=== PATIENT | male | born 1945 | race Caucasian/White ===

== ENCOUNTER 2017-12-18 06:55 | Outpatient (CLI) | payer MEDICARE ==
[2017-12-18] MEDS ORDERED: Regadenoson 0.4 MG/5 ML SYRINGE ONE (10:24)
--- NOTE | 2017-12-18 12:16 | NM ---
NUCLEAR MEDICINE CARDIAC STRESS TEST WITH EJECTION FRACTION: HISTORY: Coronary artery disease. COMPARISON: None. TECHNIQUE: Stress and rest was performed after the intravenous administration of 30.1 and 10.4 mCi technetium-99 m sestamibi intravenously, respectively. FINDINGS: There are fixed defects of the lateral wall, anterior wall, inferior wall, and septum. There is perii nfarct ischemia of the apex and inferior wall. There is global hypokinesia. The ejection fraction is 18%. IMPRESSION: 1. Extensive fixed defects throughout the anterior, lateral, inferior wall, and septum, as well as a pex, along with some periinfarct ischemia of the lateral wall and apex. 2. Abnormal low ejection fraction of 18% with global hypokinesia. POS: [facility]
--- NOTE | 2017-12-22 12:22 | STRESS ---
Acquisition Time: 2017-12-18 09:08:27 Total Exercise Time: 00:01:00 Test Indications: CAD Medications: Protocol: LEXISCAN Max HR: 086 BPM 58% of Pred: 148 BPM Max BP: 116/076 mmHG Max Work Load: 1.0 METS THE PATIENT WAS INJECTED WITH LEXISCAN. HE DID NOT DEVELOP CHEST PAIN. THERE WAS NO SIGNIFICANT ST DEPRESSION. AWAIT NUCLEAR IMAGES FOR DEFINITIVE DIAGNOSIS. Confirmed by DANDRE MCGOVERN ([id number]), editor publications VIKTOR KHAN ([id number]) on 12/22/2017 12:22:32 PM Referred By: MD Faisal REYES Confirmed By:DANDRE MCGOVERN
== END 2017-12-18 06:56 | disposition home or self-care (01) ==
LOC: NM 06:55
PROVIDERS: ATTEND Internal Medicine Cardiovascular Disease
DX: I25.10 Atherosclerotic heart disease of native coronary artery without angina pectoris (principal); I25.9 Chronic ischemic heart disease, unspecified
CPT/HCPCS: 78452; 93017; A9500; J2785

== ENCOUNTER 2019-06-20 19:11 | Inpatient (IN) | payer MEDICARE ==
[2019-06-20 19:44] LABS: #Eosinphils 0.1 thou/uL (0.0-0.7); #Lymphocytes 0.8 thou/uL (1.20-3.40); #Neutrophils 6.2 thou/uL (1.40-6.50); %Basophils 0.3 % (0.0-1.0); %Eosinophils 0.7 % (0.0-10.0); %Monocytes 12.2 % (0.0-10.0); %Neutrophils 76.7 % (42.0-75.0); Hemoglobin 13.2 g/dL (14.0-18.0); Mean Corpuscular HGB CONC 31.3 g/dL (32.0-36.0); Mean Corpuscular Hemoglobin 30.3 pg (27.0-31.0); Mean Corpuscular Volume 96.8 fL (78.0-98.0); Mean Platelet Volume 9.8 fL (7.4-10.4); Platelet Count 89 thou/uL (130-400); RBC Distribution Width 14.1 % (11.5-14.5); Red Blood Cell (RBC) Count 4.34 mill/uL (4.70-6.10); White Blood Cell (WBC) Count 8.1 thou/uL (4.8-10.8)
[2019-06-20 19:48] LABS: Bilirubin 1+ (Negative); Blood, Urine 2+ (Negative); Clarity Turbid (Clear); Glucose, Urine (Dipstick) Normal (Negative); Leukocyte Negative Leu/uL (Negative); Nitrite Negative (Negative); Protein, Urine (Dipstick) 100 mg/dL (Neg-Trace); Squamous Epithelial None Seen HPF (0-3)
[2019-06-20 19:49] LABS: Bacteria/HPF 1+ HPF (None Seen)
[2019-06-20 20:03] LABS: ALT (SGPT) 20 U/L (8-55); AST (SGOT) 23 U/L (5-34); Albumin 3.6 g/dL (3.4-4.8); Alkaline Phosphatase 67 U/L (40-110); Anion Gap 14 mmol/L (10-20); BUN (Urea Nitrogen) 33 mg/dL (8.4-25.7); Bilirubin, Total 3.7 mg/dL (0.2-1.2); Calc. Creatinine Clearance 0 mL/min (70-130); Carbon Dioxide 23 mmol/L (23-31); Chloride 102 mmol/L (98-107); Estimated GFR-MDRD 43; Globulin 2.8 g/dL (2.4-3.5); Glucose 104 mg/dL (83-110); Potassium 4.3 mmol/L (3.5-5.1); Protein, Total 6.4 g/dL (5.8-8.1); Sodium 135 mmol/L (136-145)
[2019-06-20] MEDS ORDERED: Fentanyl 100 MCG/2 ML VIAL ONE (21:56)
[2019-06-20 22:10] LABS: PTT 61.2 SEC (22.9-36.1); Prothrombin Time 31.1 sec (12.0-14.7)
[2019-06-20 23:54] VITALS: BMI 32.1
[2019-06-21] MEDS ORDERED: Ondansetron PF 4 MG/2 ML Vial IVP PRN ×2 (01:48→09:56)
[2019-06-21] MEDS ORDERED: Ondansetron ODT 4 MG TAB SL PRN (01:48)
[2019-06-21] MEDS ORDERED: Acetaminophen 325 MG TAB PO PRN (01:48)
[2019-06-21] MEDS ORDERED: Fentanyl 100 MCG/2 ML VIAL SLOW IVP PRN ×2 (01:49→02:05)
[2019-06-21] MEDS: Sodium Chloride 0.9% 1,000 ML IV SCH ×5 (01:56→22:00)
[2019-06-21 06:20] LABS: INR-International Normal Ratio 2.9; Prothrombin Time 30.2 sec (12.0-14.7)
[2019-06-21 06:34] LABS: ALT (SGPT) 17 U/L (8-55); AST (SGOT) 22 U/L (5-34); Albumin 3.6 g/dL (3.4-4.8); Alkaline Phosphatase 71 U/L (40-110); Anion Gap 13 mmol/L (10-20); BUN (Urea Nitrogen) 35 mg/dL (8.4-25.7); Bilirubin, Direct 1.5 mg/dL (0.1-0.3); Bilirubin, Total 3.7 mg/dL (0.2-1.2); Calc. Creatinine Clearance 86 mL/min (70-130); Calcium 8.8 mg/dL (7.8-10.44); Carbon Dioxide 23 mmol/L (23-31); Chloride 104 mmol/L (98-107); Estimated GFR-MDRD 56; Glucose 85 mg/dL (83-110); Magnesium 1.8 mg/dL (1.6-2.6); Potassium 4.3 mmol/L (3.5-5.1); Protein, Total 6.6 g/dL (5.8-8.1); Sodium 136 mmol/L (136-145)
[2019-06-21 06:39] LABS: #Eosinphils 0.1 thou/uL (0.0-0.7); #Lymphocytes 0.9 thou/uL (1.20-3.40); #Neutrophils 5.9 thou/uL (1.40-6.50); %Basophils 0.1 % (0.0-1.0); %Eosinophils 1.3 % (0.0-10.0); %Lymphocytes 11.6 % (21.0-51.0); %Monocytes 12.1 % (0.0-10.0); %Neutrophils 74.9 % (42.0-75.0); Hemoglobin 12.9 g/dL (14.0-18.0); Mean Corpuscular HGB CONC 30.6 g/dL (32.0-36.0); Mean Corpuscular Hemoglobin 29.7 pg (27.0-31.0); Mean Corpuscular Volume 96.8 fL (78.0-98.0); Mean Platelet Volume 9.8 fL (7.4-10.4); Platelet Count 93 thou/uL (130-400); RBC Distribution Width 14.4 % (11.5-14.5); Red Blood Cell (RBC) Count 4.36 mill/uL (4.70-6.10); White Blood Cell (WBC) Count 7.9 thou/uL (4.8-10.8)
[2019-06-21] MEDS ORDERED: Prevnar 13-Val Conj/PF 0.5 ML SYRINGE IM ONE (09:00)
[2019-06-21] MEDS ORDERED: Dextrose 5% in Water 1,000 ML IV PRN (09:56)
[2019-06-21] MEDS ORDERED: Ondansetron ODT 4 MG TAB PO PRN (09:56)
[2019-06-21] MEDS ORDERED: HumaLOG 300 UNITS/3 ML VIAL SC PRN ×2 (09:56)
[2019-06-21] MEDS ORDERED: Dextrose 50% Abboject 50 ML SYRINGE SLOW IVP PRN (09:56)
[2019-06-21 10:55] LABS: Digoxin 0.75 ng/mL (0.8-2.0)
[2019-06-21] MEDS: cefTRIAXone\\ROCEPHIN 2 GM in Sodium Chloride 0.9% 100 ML IVPB SCH (11:20)
[2019-06-21] MEDS: Acetaminophen 500 MG TAB PO PRN ×2 (11:28→20:11)
--- NOTE | 2019-06-21 11:51 | HP ---
PRIMARY CARE PROVIDER: Dr. James Hooker CHIEF COMPLAINT: Abdominal pain. HISTORY OF PRESENT ILLNESS: This is a 73-year-old male, who presents to [facility] Emergency Department in transfer from [place] Emergency room, where the patient initially presented with left flank and left upper quadrant abdominal pain. The patient states the symptoms began approximately 5 days prior to this evaluation spontaneously. The patient denied trauma, injury, travel history, diarrhea, or dysuria. The patient denied any associated fever, chills, or vomiting. The patient states the pain has increased in severity in the left upper quadrant, bandlike, radiating to his left lower quadrant, at times worse with deep inspiration. The patient also admits to increasing abdominal girth and states he has had to increase his belt size to notches over the last 5 days. The patient denied any discoloration to the abdomen or bruising and denies any fall. The patient's last bowel movement was 72 hours prior to this evaluation. The patient took a prescription hydrocodone for management of his pain at home. The patient denied any other change to his chronic medication regimen and states he was placed on oral antibiotics after visiting the emergency room in [place], but only took 1 dose, at which point the pain increased and he presented back to the emergency room for evaluation. CT imaging in the emergency room showed no acute process. However, the patient was noted with elevated total bilirubin and hypotension. The patient was referred to [facility] Emergency Room for further evaluation. The patient received IV fluids with normal saline in addition to fentanyl 50 mcg IV push. PAST MEDICAL HISTORY: 1. Chronic anticoagulation with Coumadin. 2. Artificial aortic valve replacement, on chronic anticoagulation. 3. Cardiomyopathy, status post AICD placement. 4. Diabetes mellitus type 2, on oral hypoglycemics. 5. History of myocardial infarction. 6. Benign prostatic hyperplasia. 7. History of atrial fibrillation. 8. Hypertension. 9. Obstructive sleep apnea, on home CPAP. PAST SURGICAL HISTORY: 1. Status post aortic valve replacement, on chronic anticoagulation. 2. Status post AICD pacemaker placement. 3. Status post right leg surgery. 4. Status post cholecystectomy. CURRENT MEDICATIONS: 1. Amiodarone 200 mg p.o. daily. 2. Coreg 6.25 mg p.o. b.i.d. 3. Digoxin 125 mcg p.o. daily. 4. Levothyroxine 137 mcg p.o. daily. 5. Metformin 1000 mg p.o. b.i.d. 6. Accupril 40 mg p.o. daily. 7. Aldactone 25 mg p.o. daily. 8. Coumadin 3.75 mg at bedtime. ALLERGIES: NO KNOWN DRUG ALLERGIES. FAMILY HISTORY: No inheritable diseases per the patient report. SOCIAL HISTORY: , with 2 daughters. No alcohol, tobacco, or illicit drug use. Resides in the [place], [place]. Retired. REVIEW OF SYSTEMS: CONSTITUTIONAL: Negative for weight loss or gain, ability to conduct usual activities. SKIN: Negative for rash, itching. EYES: Negative for double vision, pain. ENT/MOUTH: Negative for nose bleeding, neck stiffness, pain, tenderness. CARDIOVASCULAR: Negative for palpitations, dyspnea on exertion, orthopnea. RESPIRATORY: Negative for shortness of breath, wheezing, cough, hemoptysis, fever or night sweats. GASTROINTESTINAL: Negative for poor appetite, abdominal pain, heartburn, nausea , vomiting, constipation, or diarrhea. GENITOURINARY: Negative for urgency, frequency, dysuria, nocturia. MUSCULOSKELETAL: Negative for pain, swelling. NEUROLOGIC/PSYCHIATRIC: Negative for anxiety, depression. ALLERGY/IMMUNOLOGIC: Negative for skin rash, bleeding tendency. Otherwise, negative except as stated per HPI. PHYSICAL EXAMINATION: VITAL SIGNS: Blood pressure 93/64, pulse 77, respiratory rate is 20, temperature 98.2 degrees Fahrenheit, and O2 saturation 94% on room air. GENERAL APPEARANCE: This is a 73-year-old male, alert and oriented x3 , pleasant, responsive, in no acute distress. HEENT: Pupils are equal, round, and reactive to light and accommodation. Extraocular muscles are intact. No scleral icterus. No conjunctival injection. Nares patent. OP is clear. Teeth in fair repair. NECK: Supple. No cervical adenopathy. No thyromegaly. No carotid bruits. No JVD appreciated. Cervical spine with full active and passive range of motion. No meningeal signs noted. CHEST: Lungs are clear to auscultation bilaterally. CARDIOVASCULAR: S1 and S2 with irregular rate. Right upper sternal border with mechanical click consistent with aortic valve replacement. ABDOMEN: Obese, distended with tenderness to palpation in the left upper and left lower quadrant. No CVA tenderness elicited. No palpable mass. No rebound or guarding. Bowel sounds are positive in all 4 quadrants. Landmarks are difficult to palpate due to the patient's body habitus. EXTREMITIES: Warm and dry with fair turgor. Mild edema to the lower extremities bilaterally. Pulses diminished, but palpable at the dorsalis pedis, posterior tibial, and popliteal arteries bilaterally. Capillary refill less than 2 seconds. Hyperpigmentation changes consistent with venous stasis of the lower extremities bilaterally. NEUROLOGIC: Cranial nerves 2 through 12 are grossly intact. No focal or lateralizing signs appreciated. PERTINENT LABORATORY AND X-RAY FINDINGS: Sodium 135, potassium 4.3, chloride 102, CO2 of 23, BUN 33, creatinine 1.58, estimated GFR 43, glucose 104, lactic acid level 1.0, calcium 9.0, magnesium 1.8, total bilirubin 3.7, AST 23, ALT of 20, alkaline phosphatase 67, albumin 3.6, lipase 50. CBC showed a white blood cell count of 8.1, hemoglobin 13.2, hematocrit 42.1, platelet count 89,000 with 77% neutrophils. PT 30.2, INR 2.9. Urinalysis showed a pH of 5.5, specific gravity 1.048, positive protein, blood and bilirubin with 11 to 20 rbc's per high-power field, 7 to 10 wbc's per high-power field. CT of the abdomen and pelvis dated 06/19/2019, showed small amount of ascites. Acute abdominal process not identified. CT angiogram of the chest dated 06/19/2019, showed no evidence for pulmonary embolus. 3 views of the left rib cage and chest wall dated 06/19/2019, showed no acute process. PA and lateral chest x-ray dated 06/19/2019, showed cardiomegaly without acute process. EKG dated 06/20/2019, by my interpretation shows a ventricular paced rhythm with heart rates in the 70s. ASSESSMENT AND PLAN: 1. Abdominal pain. Predominance of left upper quadrant and left flank. We will obtain abdominal ultrasound to rule out hematoma given the patient's chronic Coumadin therapy. Suspect element of urinary tract infection as underlying etiology. Continue pain control with fentanyl 25 mcg IV q.4 hours p.r.n. Serial abdominal exams. 2. Urinary tract infection. Initiate Rocephin 2 g IV q.24 hours awaiting final urine culture results. 3. Hypotension. Suspect element of dehydration in conjunction with antihypertensive regimen. Hold all antihypertensive medications. Continue intravenous normal saline at 125 mL/h. 4. Acute kidney injury on chronic kidney disease stage 3. Continue IV fluids as outlined previously. Avoid nephrotoxic agents and limit contrast exposure. Repeat creatinine in the a.m. 5. Hyperbilirubinemia. Exact etiology unclear. Questionable iatrogenic effect. Check abdominal ultrasound as stated previously. Repeat total bilirubin in the a.m. 6. Ischemic cardiomyopathy. Stable currently. No evidence of clinical decompensation. Check BNP. Resume amiodarone and digoxin. 7. Hypothyroidism. Check TSH level. Continue levothyroxine 137 mcg daily. 8. Prophylaxis. SCDs while in bed. Pepcid 20 mg p.o. b.i.d. 9. Code status is full. Surrogate medical decision maker is the patient's daughter. Job ID: [id number] MTDD
--- NOTE | 2019-06-21 14:31 | ULT ---
EXAM: ABDOMINAL ULTRASOUND COMPLETE: 06/21/19 HISTORY: Left flank pain, abdominal distention. COMPARISON: 06/19/19. FINDINGS: Status post cholecystectomy. Minimal hepatosplenomegaly with the liver measuring approximately 20 cm and the spleen measuring approximately 14 cm in length. Common bile duct 0.6 cm. No focal liver roberto carlos s. The visualized pancreas, IVC, and aorta are unremarkable. There is no renal hydronephrosis. No dawn dence for abscess. No focal liver mass. IMPRESSION: Evidence for ascites. Mild hepatosplenomegaly. Status post cholecystectomy. Common bile duct 0.6 cm. Left renal cyst, 2.7 x 3.1 cm. No evidence for other acute process. POS: [facility]
[2019-06-21] MEDS: Fentanyl 100 MCG/2 ML VIAL SLOW IVP PRN ×2 (15:37→19:14)
[2019-06-21] MEDS: Famotidine 20 MG TAB PO SCH (20:11)
[2019-06-21] MEDS: Warfarin Sodium 3.75 MG HALF.TAB PO SCH (20:11)
[2019-06-21] MEDS ORDERED: Warfarin Sodium 7.5 MG TAB PO SCH (21:00)
[2019-06-22] MEDS: Fentanyl 100 MCG/2 ML VIAL SLOW IVP PRN ×2 (00:18→06:26)
[2019-06-22] MEDS: Levothyroxine Sodium 25 MCG TAB PO SCH (05:22)
[2019-06-22] MEDS: Levothyroxine Sodium 112 MCG TAB PO SCH (05:23)
[2019-06-22] MEDS: Sodium Chloride 0.9% 1,000 ML IV SCH (05:24)
[2019-06-22 06:05] LABS: Prothrombin Time 41.1 sec (12.0-14.7)
[2019-06-22 06:12] LABS: Mean Corpuscular HGB CONC 30.7 g/dL (32.0-36.0); Mean Corpuscular Hemoglobin 29.9 pg (27.0-31.0); Mean Corpuscular Volume 97.5 fL (78.0-98.0); Mean Platelet Volume 9.4 fL (7.4-10.4); Platelet Count 106 thou/uL (130-400); RBC Distribution Width 14.2 % (11.5-14.5); Red Blood Cell (RBC) Count 4.34 mill/uL (4.70-6.10)
[2019-06-22 06:18] LABS: INR-International Normal Ratio 4.3
[2019-06-22 06:21] LABS: ALT (SGPT) 26 U/L (8-55); AST (SGOT) 42 U/L (5-34); Albumin 3.4 g/dL (3.4-4.8); Alkaline Phosphatase 66 U/L (40-110); Anion Gap 16 mmol/L (10-20); BUN (Urea Nitrogen) 31 mg/dL (8.4-25.7); Bilirubin, Total 2.9 mg/dL (0.2-1.2); Calc. Creatinine Clearance 119 mL/min (70-130); Calcium 8.5 mg/dL (7.8-10.44); Carbon Dioxide 18 mmol/L (23-31); Chloride 105 mmol/L (98-107); Estimated GFR-MDRD 82; Glucose 101 mg/dL (83-110); Protein, Total 6.4 g/dL (5.8-8.1); Sodium 134 mmol/L (136-145)
[2019-06-22] MEDS: Acetaminophen 500 MG TAB PO PRN (06:26)
[2019-06-22 06:48] LABS: Band 1 % (5-11); Elliptocytes SLIGHT = 2-5 cells (100X) (0-1/hpf); Eosinophils 1 % (0-10); Lymphocytes 14 % (21-51); MDiff Complete? YES; Monocytes 17 % (0-10); Neutrophil 67 % (42-75); Platelet Morphology Comment Appears Decreased
[2019-06-22 07:08] LABS: Prothrombin Time 40.5 sec (12.0-14.7)
[2019-06-22 07:28] LABS: INR-International Normal Ratio 4.3
[2019-06-22] MEDS: Amiodarone 200 MG TAB PO SCH (08:23)
[2019-06-22] MEDS: Famotidine 20 MG TAB PO SCH ×2 (08:23→20:26)
[2019-06-22] MEDS: Digoxin 0.125 MG TAB PO SCH (08:24)
[2019-06-22] MEDS ORDERED: Non-Formulary Item 1 EACH (Levothyroxine Sodium [Levothyroxine Sodium] 137 MCG) PO SCH (09:00)
[2019-06-22] MEDS ORDERED: Digoxin 0.25 MG TAB PO SCH (09:00)
[2019-06-22] MEDS ORDERED: Sodium Chloride 0.9% 1,000 ML IV SCH (10:09)
--- NOTE | 2019-06-22 10:25 | PDOC.HOSPP ---
- Subjective Encounter Date: 06/22/19 Encounter Time: 10:15 Subjective: f/u for abd pain and distention. Still with pain in the MICHAEL/LLQ. No BM in 5 days. No N/V or diarrhea. Minimal urine output per pt. - Objective Vital Signs & Weight: Vital Signs (12 hours) Temp Pulse Resp BP Pulse Ox 06/22/19 08:24 69 06/22/19 08:00 99 06/22/19 07:47 97.8 F 69 16 108/70 99 06/22/19 03:40 97.5 F L 78 18 128/86 96 Weight Weight 257 lb I&O: 06/21/19 06/22/19 06/23/19 06:59 06:59 06:59 Intake Total 915 1650 Output Total 600 Balance 915 1050 Result Diagrams: 06/22/19 05:42 06/22/19 05:42 Additional Labs: Accuchecks 06/22/19 06/21/19 06/21/19 05:26 20:35 16:35 POC Glucose 89 129 H 123 H 06/21/19 11:44 POC Glucose 83 Microbiology 05/09/16 23:14 Urine sarkar catheter Urine Culture - Final NO GROWTH AT 36 HOURS 05/09/16 18:25 Stool Stool Lactoferrin - Final 05/09/16 18:25 Stool Shiga Toxin Test - Final 05/09/16 18:25 Stool Rapid Parasite Screen - Final 05/09/16 18:25 Stool Campylobacter Antigen Assay - Final 05/09/16 18:25 Stool C. difficile GDH Antigen & Toxins - Final 05/09/16 11:33 Urine Straight Catheter Urine Culture - Final Escherichia coli 05/09/16 11:30 Venous blood - Left Arm Blood Culture - Final Coagulase Neg Staphylococcus 06/20/19 19:28 Urine voided Urine Culture - Preliminary NO GROWTH AT 24 HOURS 05/09/16 11:50 Venous blood - Left Hand Blood Culture - Preliminary NO GROWTH AT 48 HOURS Laboratory Tests 05/09/16 05/09/16 05/10/16 15:25 15:26 05:06 Hgb Plt Count Neutrophils % Neutrophils % (Manual) INR 2.9 BUN Creatinine 1.36 H 1.50 H Total Bilirubin AST B-Natriuretic Peptide TSH 3rd Generation Digoxin 05/10/16 05/10/16 05/11/16 05:06 05:06 05:25 Hgb 12.2 L Plt Count Neutrophils % Neutrophils % (Manual) INR 4.0 4.2 H* BUN Creatinine Total Bilirubin AST B-Natriuretic Peptide TSH 3rd Generation Digoxin 05/11/16 05/11/16 05/12/16 05:25 12:05 04:44 Hgb 12.0 L Plt Count Neutrophils % Neutrophils % (Manual) INR 4.0 BUN Creatinine 1.01 Total Bilirubin AST B-Natriuretic Peptide TSH 3rd Generation Digoxin 06/20/19 06/20/19 06/21/19 19:28 19:28 05:46 Hgb Plt Count 89 L Neutrophils % 76.7 H Neutrophils % (Manual) INR BUN 33 H 35 H Creatinine 1.58 H 1.26 Total Bilirubin 3.7 H 3.7 H AST 23 22 B-Natriuretic Peptide TSH 3rd Generation Digoxin 06/21/19 06/21/19 06/21/19 05:46 05:46 05:46 Hgb Plt Count 93 L Neutrophils % 74.9 Neutrophils % (Manual) INR BUN Creatinine Total Bilirubin AST B-Natriuretic Peptide TSH 3rd Generation 0.3060 L Digoxin 0.75 L 06/21/19 06/22/19 10:24 05:42 Hgb Plt Count Neutrophils % Neutrophils % (Manual) 67 INR BUN Creatinine Total Bilirubin AST B-Natriuretic Peptide 644.0 H TSH 3rd Generation Digoxin Radiology Reviewed by me: Yes (ABD sono - + ascites, no acute process noted) Hospitalist ROS - Medication Medications: Active Medications Generic Name Dose Route Start Last Admin Trade Name Freq PRN Reason Stop Dose Admin Acetaminophen 1,000 mg 06/21/19 09:56 06/22/19 06:26 Tylenol PO 1,000 mg Q6H PRN Administration Mild Pain (1-3) Amiodarone HCl 200 mg 06/22/19 09:00 06/22/19 08:23 Cordarone PO 200 mg DAILY NOHEMY Administration Digoxin 0.125 mg 06/22/19 09:00 06/22/19 08:24 Lanoxin PO 0.125 mg QAM NOHEMY Administration Famotidine 20 mg 06/21/19 21:00 06/22/19 08:23 Pepcid PO Not Given BID NOHEMY Fentanyl 25 mcg 06/21/19 10:00 06/22/19 06:26 Sublimaze SLOW IVP 25 mcg Q4H PRN Administration Moderate to Severe Pain (6-10) Ceftriaxone Sodium 2 gm/ 100 mls @ 200 mls/hr 06/21/19 11:00 06/21/19 11:20 Sodium Chloride IVPB 100 mls Q24HR NOHEMY Administration Levothyroxine Sodium 112 mcg 06/22/19 06:00 06/22/19 05:23 Synthroid PO 112 mcg 0600 NOHEMY Administration Levothyroxine Sodium 25 mcg 06/22/19 06:00 06/22/19 05:22 Synthroid PO 25 mcg 0600 NOHEMY Administration Sodium Chloride 10 ml 06/21/19 21:00 06/22/19 08:27 Flush - Normal Saline IVF Not Given Q12HR NOHEMY Warfarin Sodium 3.75 mg 06/21/19 21:00 06/21/19 20:11 Coumadin PO 3.75 mg HS NOHEMY Administration - Exam General Appearance: awake alert General - other findings: responsive in mild distress Eye: PERRL, anicteric sclera ENT: normocephalic atraumatic, no oropharyngeal lesions Neck: supple, symmetric, no JVD, no thyromegaly Heart: RRR, no gallops, no rubs, normal peripheral pulses Heart - other findings: S1, S2 Respiratory: CTAB Respiratory - other findings: diminished in bases Gastrointestinal: normal bowel sounds Gastrointestinal - other findings: obese, TTP in MICHAEL/LLQ, no palpable mass, mild ascites Extremities: no cyanosis, 1+ LE edema, 2+ LE edema Skin: normal turgor Neurological: cranial nerve grossly intact, no new deficit Musculoskeletal: normal tone, normal strength Psychiatric: A&O x 3, flat affect Hosp A/P (1) Abdominal pain Code(s): R10.9 - UNSPECIFIED ABDOMINAL PAIN Status: Acute Qualifiers: Abdominal location: left upper quadrant Qualified Code(s): R10.12 - Left upper quadrant pain Plan: Unclear etiology, ? constipation related, start Dulcolax supp/Senokot S, Saline lock IVF's, consult GI service, check Bladder scan for retention (2) UTI (urinary tract infection) Status: Acute Qualifiers: Hematuria presence: with hematuria Plan: Suspected with negative Ucx to date, continue Rocephin 2gm IV daily (3) Acute kidney injury superimposed on CKD Code(s): N17.9 - ACUTE KIDNEY FAILURE, UNSPECIFIED; N18.9 - CHRONIC KIDNEY DISEASE, UNSPECIFIED Status: Acute Plan: Improved, saline lock IVF's, avoid nephrotoxic meds and limit contrast (4) Supratherapeutic INR Code(s): R79.1 - ABNORMAL COAGULATION PROFILE Status: Acute Plan: Hold Coumadin, Goal INR 2-3, repeat PT/INR in am (5) Cardiomyopathy Code(s): I42.9 - CARDIOMYOPATHY, UNSPECIFIED Status: Chronic Plan: Continue home Digoxin/Amiodarone/Coreg, Lasix 20mg IV x 1 toda (6) Hypothyroid Code(s): E03.9 - HYPOTHYROIDISM, UNSPECIFIED Status: Chronic (7) Hyperbilirubinemia Code(s): E80.6 - OTHER DISORDERS OF BILIRUBIN METABOLISM Status: Acute Plan: Suspect hepatic congestion given ascites on abd sono, Lasix 20mg IV x 1, resume Aldactone - Plan continue antibiotics, 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
[2019-06-22] MEDS ORDERED: Furosemide 20 MG/2 ML VIAL SLOW IVP SCH (10:30)
[2019-06-22] MEDS ORDERED: Bisacodyl 10 MG SUPP PR PRN (10:30)
[2019-06-22] MEDS ORDERED: Senokot S 8.6-50 MG TAB PO SCH ×2 (10:30→21:00)
[2019-06-22] MEDS: cefTRIAXone\\ROCEPHIN 2 GM in Sodium Chloride 0.9% 100 ML IVPB SCH (10:32)
--- NOTE | 2019-06-23 02:14 | CON ---
DATE OF CONSULTATION: 06/22/2019 REASON FOR CONSULTATION: Abdominal pain, hyperbilirubinemia. CONSULTING PROVIDER: Dr. Robert Grossman. HISTORY OF PRESENT ILLNESS: The patient is a 73-year-old male with past medical history of obstructive sleep apnea, hypertension, atrial fibrillation, aortic valve repair, coronary artery disease/myocardial infarction, cardiomyopathy status post AICD, diabetes, and benign prostatic hyperplasia, presenting with complaints of left-sided abdominal pain and abnormal liver function tests. The patient states that approximately 5 to 6 days ago, he began having increased left lower quadrant abdominal pain that he characterized as a sharp/stabbing type sensation that would radiate to the left upper quadrant, was intermittent, lasting for 1 to 2 hours in duration, and reaching a severity of 8/10. The pain was worse with pressure to the left side of his abdomen, lying down, twisting movements, and not having a bowel movement. The pain was better with lying on either of his sides, pain medications, and having a bowel movement. This abdominal pain was also associated with increased abdominal bloating, anxiety, subjective chills, and possible weight gain per patient. However, he denied any nausea, vomiting, fevers, hematemesis, melena, hematochezia, dysphagia, or odynophagia. On review of the patient's chart, he initially went to the [facility] room; at which point, he was diagnosed with what sounds like diverticulitis and given antibiotics in addition to hydrocodone for pain relief; however, he only took one dose of the antibiotics and presented back to the emergency room with no significant relief in his pain other than what was achieved with hydrocodone. CT scan obtained within the [facility] did not show any acute intraabdominal process, but he was noted to have a hyperbilirubinemia in addition to mild hypotension, so he was subsequently transferred to [facility] for further evaluation. While in the ER, the patient did receive IV fluids in addition to fentanyl 50 mcg IV push. REVIEW OF SYSTEMS: A 10-category review of systems was obtained with all responses negative except for the pertinent positives as listed in HPI. PAST MEDICAL HISTORY: As per HPI. PAST SURGICAL HISTORY: Cholecystectomy, right leg surgery, AICD/pacemaker placement, and aortic valve replacement. FAMILY HISTORY: Denies any GI malignancies. SOCIAL HISTORY: Denies any tobacco, alcohol, or illicit drug use. OUTPATIENT MEDICATIONS: Reviewed. ALLERGIES: NO KNOWN DRUG ALLERGIES. PHYSICAL EXAMINATION: VITAL SIGNS: Temperature 97.6, pulse 74, blood pressure 118/82, respiratory rate 18, saturating 98% on 2 L nasal cannula. GENERAL: The patient was lying in bed, in no acute distress. Alert and oriented x4. HEENT: Normocephalic and atraumatic. NECK: Supple. No JVD or scleral icterus noted. CARDIOVASCULAR: 4/6 systolic murmur best heard at the left upper sternal border in addition to a loud S2 was auscultated. RESPIRATORY: Clear to auscultation bilaterally with no discernible wheezes or rales. ABDOMEN: Normoactive bowel sounds. Soft. Mild abdominal distention. Mild tenderness to palpation in all abdominal quadrants. EXTREMITIES: No cyanosis or clubbing, but 2+ bilateral lower extremity edema was noted to the bilateral knees. LABORATORY DATA: CBC with a white blood cell count of 8, hemoglobin 13, hematocrit 42.3, platelets 106. INR 4.3. Chemistry with a sodium of 134, potassium 5, chloride 105, CO2 of 18, BUN 31, creatinine 0.91, glucose 101, AST 42, ALT 26, alkaline phosphatase 66, total bilirubin 2.9, direct bilirubin 1.5. BNP 644. IMAGING DATA: Abdominal ultrasound was obtained on June 21, 2019, which showed surgical change consistent with cholecystectomy. Minimal hepatosplenomegaly with the liver measuring approximately 20 cm was seen. However, the common bile duct measured 6 mm in diameter. There was no evidence of renal hydronephrosis. No evidence of abscess or focal liver mass. There was, however, evidence for mild ascites. On review of the patient's chart, CT of the abdomen and pelvis was obtained on June 19, 2019, which showed a small amount of ascites, but no other intraabdominal abnormalities. Colonoscopy was performed on August 05, 2016, which showed the presence of a descending colon tubular adenoma (unknown size as the colonoscopy report is not available for review). ASSESSMENT AND PLAN: The patient is a 73-year-old male with past medical history of obstructive sleep apnea, hypertension, atrial fibrillation, aortic valve repair, coronary artery disease/myocardial infarction, cardiomyopathy status post automatic implantable cardioverter-defibrillator/pacemaker, diabetes, and benign prostatic hyperplasia, presenting with left-sided abdominal pain and hyperbilirubinemia. 1. Left-sided abdominal pain. a. The patient had sudden onset of increased left-sided abdominal pain that has been present for the last 5 to 6 days and characterized as a sharp/stabbing type sensation originating in the left lower quadrant but radiating to the left upper quadrant. Prior to the onset of this pain, the patient was having approximately 1 solid bowel movement every 2 to 3 days that would require intermittent straining in order to facilitate defecation. With administration of narcotic medications including hydrocodone over the last 5 to 6 days, it actually worsened his abdominal pain prompting his readmission to the [facility]. However, over the course of this hospitalization, the patient was given a glycerin suppository and had a "voluminous" bowel movement today with significant reduction in his abdominal pain to the point where he had minimal abdominal pain on physical examination today. At this time, the origin of his abdominal pain seems to be more related to chronic constipation or rather worsening of his chronic constipation to possibly include a stool impaction or stool plug preventing the passage of stool and resulting in increased intracolonic pressures. Given the colonoscopy performed in 2017 with removal of a tubular adenoma, the likelihood of colonic malignancy is low. Differential could include diverticulitis (less likely) stercoral colitis, [id number] constipation, narcotic bowel syndrome, ischemic colitis (less likely) and/or GI neoplasm (less likely). b. Recommendations are. I. Would continue patient on a bowel regimen to include MiraLAX twice daily. II. Could consider bisacodyl as needed and/or enemas to facilitate defecation. III. Would continue to monitor patient for continued abdominal pain and/or GI bleeding. IV. If the patient continues to have increasing left-sided abdominal pain despite a bowel regimen and more frequent bowel movements, would consider colonoscopic evaluation at that time. 2. Hyperbilirubinemia. a. The patient is also presenting with an increased total bilirubin of 2.9, but a direct bilirubin of 1.5, making the diagnosis of a hepatic origin less likely (liver etiology for his hyperbilirubinemia would have a much higher direct bilirubin). The patient is also presenting with concurrent diagnosis of cardiomyopathy in addition to an elevated BNP and significant lower extremity edema, which could be indicative of worsening of his cardiomyopathy to progress toward congestive heart failure. If that is the case, he could also present as congestive hepatopathy, which could contribute to an elevated bilirubin. Differential could also include medication-induced hyperbilirubinemia, intravascular hemolysis (less likely), Gilbert syndrome (slightly less likely), congestive hepatopathy, and/or underlying liver disease. b. Recommendations are. I. Would continue to trend his LFTs during the course of this hospitalization to evaluate for resolution. II. We will consider obtaining a haptoglobin for possible intravascular hemolysis, although given his stable hemoglobin and hematocrit, this is much less likely. III. Would place the patient on a diuretic regimen for management of his congestive heart failure contributing to probable congestive hepatopathy. IV. If the patient has enough ascites that could potentially undergo paracentesis, I would recommend a paracentesis for further evaluation of the fluid including fluid albumin and protein, which could help differential between a liver versus renal versus cardiac origin. We will continue to monitor. Please call with any questions. Job ID: [id number]
[2019-06-23] MEDS: Levothyroxine Sodium 25 MCG TAB PO SCH (06:05)
[2019-06-23] MEDS: Levothyroxine Sodium 112 MCG TAB PO SCH (06:05)
[2019-06-23 06:28] LABS: Prothrombin Time 44.5 sec (12.0-14.7)
[2019-06-23 06:42] LABS: ALT (SGPT) 72 U/L (8-55); AST (SGOT) 107 U/L (5-34); Albumin 3.3 g/dL (3.4-4.8); Alkaline Phosphatase 68 U/L (40-110); Anion Gap 15 mmol/L (10-20); BUN (Urea Nitrogen) 23 mg/dL (8.4-25.7); Bilirubin, Total 2.4 mg/dL (0.2-1.2); Calc. Creatinine Clearance 121 mL/min (70-130); Calcium 8.7 mg/dL (7.8-10.44); Carbon Dioxide 19 mmol/L (23-31); Chloride 104 mmol/L (98-107); Estimated GFR-MDRD 83; Globulin 2.8 g/dL (2.4-3.5); Glucose 84 mg/dL (83-110); Potassium 4.3 mmol/L (3.5-5.1); Protein, Total 6.1 g/dL (5.8-8.1); Sodium 134 mmol/L (136-145)
[2019-06-23 06:45] LABS: INR-International Normal Ratio 4.8
[2019-06-23] MEDS: Digoxin 0.125 MG TAB PO SCH (07:41)
[2019-06-23] MEDS: Famotidine 20 MG TAB PO SCH ×2 (07:41→20:30)
[2019-06-23] MEDS: Amiodarone 200 MG TAB PO SCH (07:41)
[2019-06-23] MEDS: Polyethylene Glycol 3350 17 GM Packet PO SCH ×2 (07:41→20:30)
[2019-06-23] MEDS: cefTRIAXone\\ROCEPHIN 2 GM in Sodium Chloride 0.9% 100 ML IVPB SCH (10:29)
[2019-06-23] MEDS ORDERED: Furosemide 20 MG/2 ML VIAL SLOW IVP SCH (11:00)
--- NOTE | 2019-06-23 11:04 | PDOC.HOSPP ---
- Subjective Encounter Date: 06/23/19 Encounter Time: 11:00 Subjective: f/u for abd pain/constipation with BM's x 2 after receiving Dulcolax/Senokot-S. Still with abd fullness and some swelling of the legs/feet. - Objective Vital Signs & Weight: Vital Signs (12 hours) Temp Pulse Resp BP Pulse Ox 06/23/19 08:00 97 06/23/19 07:41 78 06/23/19 06:50 98.1 F 78 19 119/69 97 Weight Weight 257 lb I&O: 06/22/19 06/23/19 06/24/19 06:59 06:59 06:59 Intake Total 1650 1800 360 Output Total 600 701 Balance 1050 1099 360 Result Diagrams: 06/22/19 05:42 06/23/19 06:10 Additional Labs: Accuchecks 06/23/19 06/22/19 06/22/19 03:43 19:25 15:43 POC Glucose 90 163 H 111 H 06/22/19 11:48 POC Glucose 97 Microbiology 05/09/16 23:14 Urine sarkar catheter Urine Culture - Final NO GROWTH AT 36 HOURS 05/09/16 18:25 Stool Stool Lactoferrin - Final 05/09/16 18:25 Stool Shiga Toxin Test - Final 05/09/16 18:25 Stool Rapid Parasite Screen - Final 05/09/16 18:25 Stool Campylobacter Antigen Assay - Final 05/09/16 18:25 Stool C. difficile GDH Antigen & Toxins - Final 05/09/16 11:33 Urine Straight Catheter Urine Culture - Final Escherichia coli 05/09/16 11:30 Venous blood - Left Arm Blood Culture - Final Coagulase Neg Staphylococcus 06/20/19 19:28 Urine voided Urine Culture - Preliminary NO GROWTH AT 24 HOURS 05/09/16 11:50 Venous blood - Left Hand Blood Culture - Preliminary NO GROWTH AT 48 HOURS Laboratory Tests 05/09/16 05/09/16 05/10/16 15:25 15:26 05:06 Hgb Plt Count Neutrophils % Neutrophils % (Manual) INR 2.9 BUN Creatinine 1.36 H 1.50 H Total Bilirubin AST B-Natriuretic Peptide TSH 3rd Generation Digoxin 05/10/16 05/10/16 05/11/16 05:06 05:06 05:25 Hgb 12.2 L Plt Count Neutrophils % Neutrophils % (Manual) INR 4.0 4.2 H* BUN Creatinine Total Bilirubin AST B-Natriuretic Peptide TSH 3rd Generation Digoxin 05/11/16 05/11/16 05/12/16 05:25 12:05 04:44 Hgb 12.0 L Plt Count Neutrophils % Neutrophils % (Manual) INR 4.0 BUN Creatinine 1.01 Total Bilirubin AST B-Natriuretic Peptide TSH 3rd Generation Digoxin 06/20/19 06/20/19 06/21/19 19:28 19:28 05:46 Hgb Plt Count 89 L Neutrophils % 76.7 H Neutrophils % (Manual) INR BUN 33 H 35 H Creatinine 1.58 H 1.26 Total Bilirubin 3.7 H 3.7 H AST 23 22 B-Natriuretic Peptide TSH 3rd Generation Digoxin 06/21/19 06/21/19 06/21/19 05:46 05:46 05:46 Hgb Plt Count 93 L Neutrophils % 74.9 Neutrophils % (Manual) INR BUN Creatinine Total Bilirubin AST B-Natriuretic Peptide TSH 3rd Generation 0.3060 L Digoxin 0.75 L 06/21/19 06/22/19 10:24 05:42 Hgb Plt Count Neutrophils % Neutrophils % (Manual) 67 INR BUN Creatinine Total Bilirubin AST B-Natriuretic Peptide 644.0 H TSH 3rd Generation Digoxin Hospitalist ROS - Medication Medications: Active Medications Generic Name Dose Route Start Last Admin Trade Name Freq PRN Reason Stop Dose Admin Acetaminophen 1,000 mg 06/21/19 09:56 06/22/19 06:26 Tylenol PO 1,000 mg Q6H PRN Administration Mild Pain (1-3) Amiodarone HCl 200 mg 06/22/19 09:00 06/23/19 07:41 Cordarone PO 200 mg DAILY NOHEMY Administration Bisacodyl 10 mg 06/22/19 10:30 06/22/19 10:33 Dulcolax [place] 10 mg DAILYPRN PRN Administration Constipation Digoxin 0.125 mg 06/22/19 09:00 06/23/19 07:41 Lanoxin PO 0.125 mg QAM NOHEMY Administration Famotidine 20 mg 06/21/19 21:00 06/23/19 07:41 Pepcid PO 20 mg BID NOHEMY Administration Fentanyl 25 mcg 06/21/19 10:00 06/22/19 06:26 Sublimaze SLOW IVP 25 mcg Q4H PRN Administration Moderate to Severe Pain (6-10) Levothyroxine Sodium 112 mcg 06/22/19 06:00 06/23/19 06:05 Synthroid PO 112 mcg 0600 NOHEMY Administration Levothyroxine Sodium 25 mcg 06/22/19 06:00 06/23/19 06:05 Synthroid PO 25 mcg 0600 NOHEMY Administration Polyethylene Glycol 17 gm 06/23/19 09:00 06/23/19 07:41 Miralax PO 17 gm BID NOHEMY Administration Sodium Chloride 10 ml 06/21/19 21:00 06/23/19 07:42 Flush - Normal Saline IVF 10 ml Q12HR NOHEMY Administration Warfarin Sodium 3.75 mg 06/21/19 21:00 06/21/19 20:11 Coumadin PO 3.75 mg HS NOHEMY Administration - Exam General Appearance: NAD, awake alert Eye: PERRL, anicteric sclera ENT: normocephalic atraumatic, no oropharyngeal lesions Neck: supple, symmetric, no JVD, no thyromegaly Heart: RRR, no gallops, no rubs, normal peripheral pulses Heart - other findings: S1, S2 Respiratory: tachypneic Respiratory - other findings: basilar crackles Gastrointestinal: soft, normal bowel sounds, no palpable masses, distended Gastrointestinal - other findings: obese Extremities: no cyanosis, 2+ LE edema Skin: normal turgor Neurological: cranial nerve grossly intact, no new deficit Musculoskeletal: normal tone, generalized weakness Psychiatric: A&O x 3, flat affect Hosp A/P (1) Abdominal pain Code(s): R10.9 - UNSPECIFIED ABDOMINAL PAIN Status: Acute Qualifiers: Abdominal location: left upper quadrant Qualified Code(s): R10.12 - Left upper quadrant pain Plan: Suspect due to constipation and fluid retention, continue Miralax BID, resume ADA diet (2) UTI (urinary tract infection) Status: Acute Qualifiers: Hematuria presence: with hematuria Plan: Ucx negative, no organism identified, d/c Rocephin (3) Acute kidney injury superimposed on CKD Code(s): N17.9 - ACUTE KIDNEY FAILURE, UNSPECIFIED; N18.9 - CHRONIC KIDNEY DISEASE, UNSPECIFIED Status: Acute Plan: Improved, avoid nephrotoxic meds and limit contrast (4) Supratherapeutic INR Code(s): R79.1 - ABNORMAL COAGULATION PROFILE Status: Acute Plan: Persistent, Vitamin K 5mg po x 1, hold Coumadin another 24h (5) Cardiomyopathy Code(s): I42.9 - CARDIOMYOPATHY, UNSPECIFIED Status: Chronic (6) Hypothyroid Code(s): E03.9 - HYPOTHYROIDISM, UNSPECIFIED Status: Chronic (7) Hyperbilirubinemia Code(s): E80.6 - OTHER DISORDERS OF BILIRUBIN METABOLISM Status: Acute - Plan PT/OT, manager social 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
[2019-06-23] MEDS ORDERED: Phytonadione 10 MG/ML AMP PO SCH (11:15)
[2019-06-23] MEDS: Furosemide 20 MG/2 ML VIAL SLOW IVP SCH (13:53)
--- NOTE | 2019-06-23 20:51 | PQF ---
CLINICAL DOCUMENTATION IMPROVEMENT CLARIFICATION FORM: ICD-10 Updated PLEASE DO AN ADDENDUM TO THE PROGRESS NOTE WITH ANY DOCUMENTATION UPDATES OR ADDITIONS AND CARRY THROUGH TO DC SUMMARY. THANK YOU. DATE: 06/23/19 ATTN: DR. NEELY Please exercise your independent, professional judgment in responding to the clarification form. Clinical indicators are provided on the bottom of this form for your review Please check appropriate box(s): HEART FAILURE: A. ACUITY [ ] Acute [ x ] Acute on Chronic [ ] Chronic B. TYPE [ ] Systolic / HFrEF [ ] Diastolic / HFpEF [ ] Combined Systolic / Diastolic [ ] Hypertensive Heart and Kidney disease [ ] Hypertensive Heart Disease [ ] Hypertensive Kidney Disease [ x ] Other diagnosis unknown type pending Echo results [ ] Unable to determine In addition, please specify: Present on Admission (POA): [ ] Yes [ x ] No [ ] Unable to determine For continuity of documentation, please document condition throughout progress notes and discharge summary. Thank You. CLINICAL INDICATORS - SIGNS / SYMPTOMS / LABS / RESULTS AND LOCATION IN EMR H&P: "INCREASING ABDOMINAL GIRTH" BNP 06/20: 644 RISKS: AORTIC VALVE REPLACEMENT (H&P) AFIB (H&P) CKD 3 (H&P) CARDIOMYOPATHY (H&P) TREATMENT: COREG (HOME MED) IV LASIX (STARTED 06/22) SAP Pot Room Tapper [employer] Winform Viewer (This form is maintained as a part of the permanent medical record) 2014 [email or web address] All Rights Reserved [email or web address] [email or web address] Cell [facility]
--- NOTE | 2019-06-23 21:14 | PRG ---
DATE OF SERVICE: 06/23/2019 SUBJECTIVE: Mr. Rodriguez still has no further abdominal pain after his large bowel movement. His primary complaint now is shortness of breath with mild exertion. He slept much better with the CPAP last night. PHYSICAL EXAMINATION: VITAL SIGNS: Temperature 98.0, pulse 69, blood pressure 116/77. GENERAL: He is in no acute distress. Alert and oriented x3. LUNGS: Clear to auscultation bilaterally. HEART: S1, S2. No murmur. Regular. ABDOMEN: Soft, nontender, and nondistended. Bowel sounds are present. EXTREMITIES: 2+ pitting lower extremity edema. LABORATORY DATA: White blood cell count 8.0, hemoglobin 13.0, platelets 106. INR 4.8, bilirubin 2.4, AST 102, ALT 72, alkaline phosphatase 68, creatinine 0.9. IMPRESSION: 1. Left lower quadrant abdominal pain resolved after he had a bowel movement. He has been started on scheduled laxatives. 2. Abnormal liver function tests. This is most likely secondary to congestive hepatopathy. I will check some additional labs including viral hepatitis panel and iron saturation. We will check autoimmune markers as well. 3. Primary treatment will be optimization of his cardiac output and diuresis. RECOMMENDATIONS: 1. Additional labs as noted above. 2. Management of his CHF per the primary service. 3. Continue current laxative regimen. Job ID: [id number]
[2019-06-24] MEDS: Furosemide 20 MG/2 ML VIAL SLOW IVP SCH (05:34)
[2019-06-24] MEDS: Levothyroxine Sodium 25 MCG TAB PO SCH (05:34)
[2019-06-24] MEDS: Levothyroxine Sodium 112 MCG TAB PO SCH (05:34)
[2019-06-24 05:37] LABS: Prothrombin Time 22.4 sec (12.0-14.7)
[2019-06-24 05:53] LABS: ALT (SGPT) 120 U/L (8-55); AST (SGOT) 163 U/L (5-34); Albumin 3.1 g/dL (3.4-4.8); Alkaline Phosphatase 70 U/L (40-110); Anion Gap 15 mmol/L (10-20); BUN (Urea Nitrogen) 22 mg/dL (8.4-25.7); Calc. Creatinine Clearance 112 mL/min (70-130); Calcium 8.6 mg/dL (7.8-10.44); Carbon Dioxide 20 mmol/L (23-31); Chloride 102 mmol/L (98-107); Estimated GFR-MDRD 76; Globulin 2.6 g/dL (2.4-3.5); Glucose 87 mg/dL (83-110); Iron 43 ug/dL (65-175); Iron Binding Capacity, Total 176 mcg/dL (261-462); Potassium 3.9 mmol/L (3.5-5.1); Protein, Total 5.7 g/dL (5.8-8.1); Sodium 133 mmol/L (136-145)
[2019-06-24 06:13] LABS: HBCM Index 0.05 S/CO (0-0.79); HBSAg Index 0.14 S/CO (0-0.99); Hep A IgM AB Non-Reactive (NonReactive); Hep A IgM S/CO 0.08 S/CO (0-0.79); Hep B Surf Ag Non-Reactive S/CO (NonReactive); Hep C IgG Ab Non-Reactive (NonReactive); Hep C Index 0.09 S/CO (0-0.79); Hepatitis B Core IgM Abs Non-Reactive (NonReactive)
[2019-06-24] MEDS: Digoxin 0.125 MG TAB PO SCH (07:48)
[2019-06-24] MEDS: Polyethylene Glycol 3350 17 GM Packet PO SCH ×2 (07:48→20:11)
[2019-06-24] MEDS: Amiodarone 200 MG TAB PO SCH (07:48)
[2019-06-24] MEDS: Famotidine 20 MG TAB PO SCH ×2 (07:48→20:09)
[2019-06-24] MEDS ORDERED: Furosemide 20 MG/2 ML VIAL SLOW IVP SCH (14:00)
--- NOTE | 2019-06-24 15:54 | PDOC.HOSPP ---
- Subjective Encounter Date: 06/24/19 Encounter Time: 15:40 Subjective: f/u for abd pain, edema and constipation. Still c/o abd fullness/LE edema and dyspnea with minimal exertion. UOP in bedside urinal minimal. - Objective Vital Signs & Weight: Vital Signs (12 hours) Temp Pulse Resp BP BP Pulse Ox 06/24/19 08:00 99 06/24/19 07:48 78 06/24/19 07:19 98.0 F 78 18 115/78 99 06/24/19 04:00 97.6 F 72 20 102/62 96 Weight Weight 257 lb I&O: 06/23/19 06/24/19 06/25/19 06:59 06:59 06:59 Intake Total 1800 1340 480 Output Total 701 250 Balance 1099 1090 480 Result Diagrams: 06/22/19 05:42 06/24/19 05:11 Additional Labs: Accuchecks 06/24/19 06/24/19 06/23/19 12:01 04:29 19:16 POC Glucose 97 87 104 06/23/19 16:01 POC Glucose 109 Microbiology 05/09/16 23:14 Urine sarkar catheter Urine Culture - Final NO GROWTH AT 36 HOURS 05/09/16 18:25 Stool Stool Lactoferrin - Final 05/09/16 18:25 Stool Shiga Toxin Test - Final 05/09/16 18:25 Stool Rapid Parasite Screen - Final 05/09/16 18:25 Stool Campylobacter Antigen Assay - Final 05/09/16 18:25 Stool C. difficile GDH Antigen & Toxins - Final 05/09/16 11:33 Urine Straight Catheter Urine Culture - Final Escherichia coli 05/09/16 11:30 Venous blood - Left Arm Blood Culture - Final Coagulase Neg Staphylococcus 06/20/19 19:28 Urine voided Urine Culture - Preliminary NO GROWTH AT 24 HOURS 05/09/16 11:50 Venous blood - Left Hand Blood Culture - Preliminary NO GROWTH AT 48 HOURS Laboratory Tests 05/09/16 05/09/16 05/10/16 15:25 15:26 05:06 Hgb Plt Count Neutrophils % Neutrophils % (Manual) INR 2.9 BUN Creatinine 1.36 H 1.50 H Total Bilirubin AST B-Natriuretic Peptide TSH 3rd Generation Digoxin 05/10/16 05/10/16 05/11/16 05:06 05:06 05:25 Hgb 12.2 L Plt Count Neutrophils % Neutrophils % (Manual) INR 4.0 4.2 H* BUN Creatinine Total Bilirubin AST B-Natriuretic Peptide TSH 3rd Generation Digoxin 05/11/16 05/11/16 05/12/16 05:25 12:05 04:44 Hgb 12.0 L Plt Count Neutrophils % Neutrophils % (Manual) INR 4.0 BUN Creatinine 1.01 Total Bilirubin AST B-Natriuretic Peptide TSH 3rd Generation Digoxin 06/20/19 06/20/19 06/21/19 19:28 19:28 05:46 Hgb Plt Count 89 L Neutrophils % 76.7 H Neutrophils % (Manual) INR BUN 33 H 35 H Creatinine 1.58 H 1.26 Total Bilirubin 3.7 H 3.7 H AST 23 22 B-Natriuretic Peptide TSH 3rd Generation Digoxin 06/21/19 06/21/19 06/21/19 05:46 05:46 05:46 Hgb Plt Count 93 L Neutrophils % 74.9 Neutrophils % (Manual) INR BUN Creatinine Total Bilirubin AST B-Natriuretic Peptide TSH 3rd Generation 0.3060 L Digoxin 0.75 L 06/21/19 06/22/19 10:24 05:42 Hgb Plt Count Neutrophils % Neutrophils % (Manual) 67 INR BUN Creatinine Total Bilirubin AST B-Natriuretic Peptide 644.0 H TSH 3rd Generation Digoxin Hospitalist ROS - Medication Medications: Active Medications Generic Name Dose Route Start Last Admin Trade Name Freq PRN Reason Stop Dose Admin Acetaminophen 1,000 mg 06/21/19 09:56 06/22/19 06:26 Tylenol PO 1,000 mg Q6H PRN Administration Mild Pain (1-3) Amiodarone HCl 200 mg 06/22/19 09:00 06/24/19 07:48 Cordarone PO 200 mg DAILY NOHEMY Administration Bisacodyl 10 mg 06/22/19 10:30 06/22/19 10:33 Dulcolax [place] 10 mg DAILYPRN PRN Administration Constipation Digoxin 0.125 mg 06/22/19 09:00 06/24/19 07:48 Lanoxin PO 0.125 mg QAM NOHEMY Administration Famotidine 20 mg 06/21/19 21:00 06/24/19 07:48 Pepcid PO 20 mg BID NOHEMY Administration Fentanyl 25 mcg 06/21/19 10:00 06/22/19 06:26 Sublimaze SLOW IVP 25 mcg Q4H PRN Administration Moderate to Severe Pain (6-10) Levothyroxine Sodium 112 mcg 06/22/19 06:00 06/24/19 05:34 Synthroid PO 112 mcg 0600 NOHEMY Administration Levothyroxine Sodium 25 mcg 06/22/19 06:00 06/24/19 05:34 Synthroid PO 25 mcg 0600 NOHEMY Administration Polyethylene Glycol 17 gm 06/23/19 09:00 06/24/19 07:48 Miralax PO 17 gm BID NOHEMY Administration Sodium Chloride 10 ml 06/21/19 21:00 06/24/19 07:50 Flush - Normal Saline IVF 10 ml Q12HR NOHEMY Administration Warfarin Sodium 3.75 mg 06/21/19 21:00 06/21/19 20:11 Coumadin PO 3.75 mg HS NOHEMY Administration - Exam General Appearance: NAD, awake alert Eye: PERRL, anicteric sclera ENT: normocephalic atraumatic, no oropharyngeal lesions Neck: supple, symmetric, no JVD, no thyromegaly Heart: RRR, no gallops, no rubs, normal peripheral pulses Heart - other findings: S1, S2 Respiratory - other findings: few basilar crackles, diminished bilat Gastrointestinal: soft, non-tender, normal bowel sounds, distended Extremities: no cyanosis, 2+ LE edema Skin: normal turgor Neurological: cranial nerve grossly intact, no new deficit Hosp A/P (1) Acute on chronic diastolic CHF (congestive heart failure) Code(s): I50.33 - ACUTE ON CHRONIC DIASTOLIC (CONGESTIVE) HEART FAILURE Status : Acute Plan: Check 2D echo, increase Lasix 40mg IV BID, start Albumin infusion IV q6h, serial I/O's, fluid restrict 1.5L/24h, place Sarkar cath for monitoring (2) Abdominal pain Code(s): R10.9 - UNSPECIFIED ABDOMINAL PAIN Status: Acute Qualifiers: Abdominal location: left upper quadrant Qualified Code(s): R10.12 - Left upper quadrant pain Plan: Secondary to edema, see above (3) UTI (urinary tract infection) Status: Acute Qualifiers: Hematuria presence: with hematuria (4) Acute kidney injury superimposed on CKD Code(s): N17.9 - ACUTE KIDNEY FAILURE, UNSPECIFIED; N18.9 - CHRONIC KIDNEY DISEASE, UNSPECIFIED Status: Acute Plan: Improved, continue serial monitoring (5) Supratherapeutic INR Code(s): R79.1 - ABNORMAL COAGULATION PROFILE Status: Acute Plan: Resolving, resume home Coumadin, serial PT/INR (6) Cardiomyopathy Code(s): I42.9 - CARDIOMYOPATHY, UNSPECIFIED Status: Chronic (7) Hypothyroid Code(s): E03.9 - HYPOTHYROIDISM, UNSPECIFIED Status: Chronic (8) Hyperbilirubinemia Code(s): E80.6 - OTHER DISORDERS OF BILIRUBIN METABOLISM Status: Acute - Plan 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
[2019-06-24] MEDS: Albumin 25% 25 GM/100 ML BOT IVPB SCH ×2 (16:32→21:08)
--- NOTE | 2019-06-24 17:49 | PRG ---
DATE OF SERVICE: 06/24/2019 SUBJECTIVE: Mr. Rodriguez continues to complain of shortness of breath with little exertion. He has no further abdominal pain. He is having increasing lower extremity edema and abdominal swelling. OBJECTIVE: VITAL SIGNS: Temperature 98.0, pulse 78, and blood pressure 115/78. GENERAL: He is in no acute distress. Alert and oriented x3. LUNGS: Clear to auscultation bilaterally. HEART: Regular rate and rhythm. ABDOMEN: Soft, nontender, and nondistended. Bowel sounds are present. EXTREMITIES: 2+ pitting lower extremity edema. LABORATORY DATA: White blood cell count 8.0, hemoglobin 13.0, and platelets 106. INR 2.0. Creatinine 0.9, bilirubin 2.0, AST 163, ALT 120, and alkaline phosphatase 70. IMPRESSION: 1. Congestive hepatopathy. 2. Acute exacerbation of diastolic heart failure. RECOMMENDATIONS: 1. Continue supportive care to maximize cardiac output. 2. Viral hepatitis screen is negative. Iron saturation is not elevated. We will await the additional labs for evaluation for other liver tests; however, I expect these to be negative. 3. I will sign off for now. Please call if GI can be of assistance. Job ID: [id number]
[2019-06-24] MEDS: Warfarin Sodium 3.75 MG HALF.TAB PO SCH (20:09)
[2019-06-24] MEDS: Furosemide 40 MG/4 ML VIAL SLOW IVP SCH (20:10)
--- NOTE | 2019-06-24 23:20 | OP ---
DATE OF PROCEDURE: 06/24/2019 PROCEDURE PERFORMED: Robles catheter placement. DESCRIPTION OF PROCEDURE: Under sterile conditions, I attempted to pass an 18-Andorran Robles catheter noting immediate resistance at the fossa navicularis. I then switched to a 14-Andorran Robles catheter and with some difficulty, was able to bypass the stricture and guide the catheter into the bladder with return of yellow urine. 10 mL was instilled in the balloon and this was connected to bag drainage. StatLock device was deployed. He tolerated the procedure well. ESTIMATED BLOOD LOSS: 0 mL. Job ID: [id number] MTDD
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
[2019-06-25] MEDS: Albumin 25% 25 GM/100 ML BOT IVPB SCH ×3 (03:35→16:33)
[2019-06-25] MEDS: Levothyroxine Sodium 25 MCG TAB PO SCH (06:20)
[2019-06-25] MEDS: Levothyroxine Sodium 112 MCG TAB PO SCH (06:20)
[2019-06-25 06:34] LABS: INR-International Normal Ratio 1.7; Prothrombin Time 20.1 sec (12.0-14.7)
[2019-06-25 06:45] LABS: ALT (SGPT) 113 U/L (8-55); AST (SGOT) 125 U/L (5-34); Albumin 3.4 g/dL (3.4-4.8); Alkaline Phosphatase 65 U/L (40-110); Anion Gap 11 mmol/L (10-20); BUN (Urea Nitrogen) 20 mg/dL (8.4-25.7); Bilirubin, Total 1.9 mg/dL (0.2-1.2); Calc. Creatinine Clearance 107 mL/min (70-130); Calcium 8.7 mg/dL (7.8-10.44); Carbon Dioxide 25 mmol/L (23-31); Chloride 101 mmol/L (98-107); Estimated GFR-MDRD 72; Globulin 2.3 g/dL (2.4-3.5); Glucose 141 mg/dL (83-110); Potassium 3.4 mmol/L (3.5-5.1); Protein, Total 5.7 g/dL (5.8-8.1); Sodium 134 mmol/L (136-145)
[2019-06-25] MEDS ORDERED: Magnesium 2 GM/50 ML 2 GM in Premix Bag 1 BAG IVPB SCH (08:45)
[2019-06-25] MEDS ORDERED: Potassium Chloride 20 MEQ TAB PO SCH (08:45)
[2019-06-25] MEDS: Polyethylene Glycol 3350 17 GM Packet PO SCH ×2 (08:50→20:50)
[2019-06-25] MEDS: Amiodarone 200 MG TAB PO SCH (08:50)
[2019-06-25] MEDS: Furosemide 40 MG/4 ML VIAL SLOW IVP SCH ×2 (08:51→20:50)
[2019-06-25] MEDS: Digoxin 0.125 MG TAB PO SCH (08:51)
[2019-06-25] MEDS: Famotidine 20 MG TAB PO SCH ×2 (08:51→20:50)
[2019-06-25] MEDS: Lisinopril 2.5 MG TAB PO SCH (09:07)
--- NOTE | 2019-06-25 09:18 | PRG ---
DATE OF SERVICE: 06/25/2019 SUBJECTIVE: A 73-year-old male with cardiomyopathy; diabetes mellitus type 2; atrial fibrillation, on anticoagulation; hypertension; and sleep apnea, presented to the emergency room at [place] with abdominal discomfort. He was transferred to this facility. An abdominal ultrasound showed findings consistent with ascites with the common bile duct of 0.6 cm. He was evaluated by Gastroenterology. His workup was consistent with congestive hepatopathy from diastolic heart failure exacerbation. His viral hepatitis screen was negative. Yesterday evening, the patient developed urinary retention requiring emergent Robles catheter by Dr. Garcia. At this time, the patient denies any abdominal discomfort, nausea, or vomiting. REVIEW OF SYSTEMS: All other review of systems was reviewed and was found negative. PHYSICAL EXAMINATION: VITAL SIGNS: Temperature 97.8, pulse rate of 71, blood pressure of 121/87, O2 saturation 99% on 1 L nasal cannula, and respirations of 18. GENERAL: A 73-year-old male in no apparent distress. NECK: Supple. No JVD appreciated. LUNGS: Showed diminished air entry at bilateral bases. No wheezing, rales, or rhonchi. No accessory muscle use. HEART: S1, S2 present. Regular. No rubs or gallops. ABDOMEN: Soft, distended, bowel sounds present. No guarding or rigidity. No costovertebral angle tenderness. EXTREMITIES: No calf tenderness. SKIN: Warm and dry. LABORATORY FINDINGS: 1. CBC from 21 June showed WBC of 8 with hemoglobin of 13, platelet count of 106. 2. INR today was 1.7. 3. Chemistry showed sodium 134, potassium 3.4, chloride of 101, bicarb 25, BUN of 20, creatinine 1.01. 4. Total bilirubin 1.9 with AST of 125, ALT of 113. 5. Hepatitis profile was negative. 6. Urine cultures have been negative. 7. Stool for occult blood was negative. 8. Abdominal ultrasound as discussed above. IMPRESSION: 1. Jfinl-[id number]-[id number] congestive heart failure. His echocardiogram is not available at this time. His stress test in 2018 showed ejection fraction of 18%. 2. Abdominal discomfort secondary to ascites, improving. 3. Abnormal LFTs secondary to congestive hepatopathy from congestive heart failure. 4. Chronic atrial fibrillation, on anticoagulation with subtherapeutic INR. Initially, the INR was supratherapeutic. 5. Obstructive sleep apnea, on CPAP. 6. Diabetes mellitus type 2. 7. Hypertension. 8. Urinary retention, requiring urgent Robles catheter 9. LINDSAY on CKD 2 - POA 10. Chronic anemia, suspected due to nutritional deficiency. 11. Hyponatremia. 12. Hypokalemia. 13. Urinary tract infection, present on admission. Please note that the patient failed outpatient therapy. 14. History of cholecystectomy. 15. History of aortic valve replacement. PLAN: The patient will be transferred to telemetry unit. His ejection fraction on the last stress test was 18%. Echocardiogram has been ordered and pending at this time. We will continue fluid restriction with IV diuretics. We will add potassium supplementation. We will continue amiodarone. Continue warfarin. We will start carvedilol and STU inhibitor once blood pressure improves. Job ID: [id number] MTDD
--- NOTE | 2019-06-25 15:19 | EKG ---
Test Reason : Blood Pressure : / mmHG Vent. Rate : 070 BPM Atrial Rate : 065 BPM P-R Int : 000 ms QRS Dur : 218 ms QT Int : 548 ms P-R-T Axes : 000 052 037 degrees QTc Int : 591 ms Ventricular-paced rhythm Abnormal ECG Confirmed by CHRISTINE BRUCE DO ([id number]), photographic editor ANTONY OTOOLE ([id number]) on 06/25/2019 3:19:03 PM Referred By: Confirmed By:CHRISTINE BRUCE DO
[2019-06-25] MEDS: Potassium Chloride 20 MEQ TAB PO SCH (16:33)
[2019-06-25] MEDS: Warfarin Sodium 3.75 MG HALF.TAB PO SCH (21:32)
[2019-06-26 04:45] LABS: ALT (SGPT) 99 U/L (8-55); AST (SGOT) 94 U/L (5-34); Albumin 3.6 g/dL (3.4-4.8); Alkaline Phosphatase 65 U/L (40-110); Anion Gap 12 mmol/L (10-20); BUN (Urea Nitrogen) 18 mg/dL (8.4-25.7); Bilirubin, Total 1.9 mg/dL (0.2-1.2); Calc. Creatinine Clearance 108 mL/min (70-130); Calcium 8.9 mg/dL (7.8-10.44); Carbon Dioxide 27 mmol/L (23-31); Chloride 101 mmol/L (98-107); Estimated GFR-MDRD 73; Globulin 2.1 g/dL (2.4-3.5); Glucose 74 mg/dL (83-110); Magnesium 1.5 mg/dL (1.6-2.6); Potassium 3.7 mmol/L (3.5-5.1); Protein, Total 5.7 g/dL (5.8-8.1); Sodium 136 mmol/L (136-145)
[2019-06-26 04:54] LABS: Band 1 % (5-11); Hemoglobin 11.8 g/dL (14.0-18.0); Hypochromia SLIGHT = 6-15 cells (100X) (0-5/hpf); Lymphocytes 10 % (21-51); MDiff Complete? YES; Mean Corpuscular HGB CONC 31.1 g/dL (32.0-36.0); Mean Corpuscular Hemoglobin 29.5 pg (27.0-31.0); Mean Platelet Volume 7.9 fL (7.4-10.4); Monocytes 13 % (0-10); Neutrophil 76 % (42-75); Platelet Count 196 thou/uL (130-400); Platelet Morphology Comment Appears Adequate; RBC Distribution Width 14.3 % (11.5-14.5); Red Blood Cell (RBC) Count 3.99 mill/uL (4.70-6.10); White Blood Cell (WBC) Count 6.6 thou/uL (4.8-10.8)
[2019-06-26] MEDS: Levothyroxine Sodium 112 MCG TAB PO SCH (05:49)
[2019-06-26] MEDS: Levothyroxine Sodium 25 MCG TAB PO SCH (05:49)
[2019-06-26] MEDS: Furosemide 40 MG/4 ML VIAL SLOW IVP SCH ×2 (08:11→20:25)
[2019-06-26] MEDS: Potassium Chloride 20 MEQ TAB PO SCH ×2 (08:11→16:21)
[2019-06-26] MEDS: Famotidine 20 MG TAB PO SCH ×2 (08:11→20:25)
[2019-06-26] MEDS: Amiodarone 200 MG TAB PO SCH (08:14)
[2019-06-26] MEDS: Digoxin 0.125 MG TAB PO SCH (08:14)
[2019-06-26] MEDS: Lisinopril 2.5 MG TAB PO SCH (08:15)
[2019-06-26] MEDS ORDERED: Magnesium Sulfate 4 GM in Sodium Chloride 0.9% 250 ML 250 ML IVPB SCH (08:15)
[2019-06-26] MEDS: Polyethylene Glycol 3350 17 GM Packet PO SCH ×2 (08:16→20:25)
--- NOTE | 2019-06-26 14:35 | PDOC.HOSPP ---
- Subjective Encounter Date: 06/26/19 Encounter Time: 08:30 Subjective: Patient seen and examined for CHF. SOB improving. No CP. No new complaints. No overnight events - Objective Vital Signs & Weight: Vital Signs (12 hours) Temp Pulse Pulse Pulse Resp BP BP 06/26/19 12:00 98.2 F 72 18 06/26/19 10:48 76 71 126/87 06/26/19 08:35 06/26/19 08:15 62 105/67 06/26/19 08:14 62 06/26/19 08:02 98.0 F 62 18 06/26/19 07:50 06/26/19 03:37 98.7 F 76 16 BP BP BP Pulse Ox 06/26/19 12:00 99/61 97 06/26/19 10:48 107/72 06/26/19 08:35 97 06/26/19 08:15 06/26/19 08:14 06/26/19 08:02 105/67 97 06/26/19 07:50 96 06/26/19 03:37 110/72 96 Weight Weight 268 lb I&O: 06/25/19 06/26/19 06/27/19 06:59 06:59 06:59 Intake Total 1440 1585 Output Total 1550 2700 Balance -110 -1115 Result Diagrams: 06/26/19 03:48 06/26/19 03:49 Additional Labs: Accuchecks 06/26/19 06/26/19 06/25/19 11:22 05:58 20:33 POC Glucose 150 H 74 167 H 06/25/19 16:45 POC Glucose 141 H EKG Reviewed by me: Yes (Tele paced) Hospitalist ROS - Review of Systems Respiratory: reports: SOB with excertion. denies: cough, dry, shortness of breath, hemoptysis, pleuritic pain, sputum, wheezing, other Cardiovascular: denies: chest pain, palpitations, orthopnea, paroxysmal noc. dyspnea, edema, light headedness, other - Medication Medications: Active Medications Generic Name Dose Route Start Last Admin Trade Name Freq PRN Reason Stop Dose Admin Acetaminophen 1,000 mg 06/21/19 09:56 06/22/19 06:26 Tylenol PO 1,000 mg Q6H PRN Administration Mild Pain (1-3) Amiodarone HCl 200 mg 06/22/19 09:00 06/26/19 08:14 Cordarone PO 200 mg DAILY NOHEMY Administration Bisacodyl 10 mg 06/22/19 10:30 06/22/19 10:33 Dulcolax AL 10 mg DAILYPRN PRN Administration Constipation Digoxin 0.125 mg 06/22/19 09:00 06/26/19 08:14 Lanoxin PO 0.125 mg QAM NOHEMY Administration Famotidine 20 mg 06/21/19 21:00 06/26/19 08:11 Pepcid PO 20 mg BID NOHEMY Administration Fentanyl 25 mcg 06/21/19 10:00 06/22/19 06:26 Sublimaze SLOW IVP 25 mcg Q4H PRN Administration Moderate to Severe Pain (6-10) Furosemide 40 mg 06/24/19 21:00 06/26/19 08:11 Lasix SLOW IVP 40 mg BID NOHEMY Administration Levothyroxine Sodium 112 mcg 06/22/19 06:00 06/26/19 05:49 Synthroid PO 112 mcg 0600 NOHEMY Administration Levothyroxine Sodium 25 mcg 06/22/19 06:00 06/26/19 05:49 Synthroid PO 25 mcg 0600 NOHEMY Administration Lisinopril 2.5 mg 06/25/19 09:00 06/26/19 08:15 Zestril PO 2.5 mg DAILY NOHEMY Administration Polyethylene Glycol 17 gm 06/23/19 09:00 06/26/19 08:16 Miralax PO Not Given BID NOHEMY Potassium Chloride 20 meq 06/25/19 17:00 06/26/19 08:11 K-Dur PO 20 meq BID-WM NOHEMY Administration Sodium Chloride 10 ml 06/21/19 21:00 06/26/19 08:17 Flush - Normal Saline IVF 10 ml Q12HR NOHEMY Administration Warfarin Sodium 3.75 mg 06/21/19 21:00 06/25/19 21:32 Coumadin PO 3.75 mg HS NOHEMY Administration - Exam General Appearance: NAD Neck: supple, no JVD Heart: RRR, no gallops Respiratory: no wheezes, no rales Gastrointestinal: soft, non-tender, normal bowel sounds Extremities: no cyanosis, no clubbing Neurological: no new deficit Psychiatric: normal affect, A&O x 3 Hosp A/P - Plan 1. Ueovs-ik-aitqses systolic CHF. 2. Abdominal discomfort secondary to ascites, improving. 3. Abnormal LFTs secondary to congestive hepatopathy from congestive heart failure. 4. Chronic atrial fibrillation, on anticoagulation. 5. Obstructive sleep apnea, on CPAP. 6. Diabetes mellitus type 2. 7. Hypertension. 8. Urinary retention, requiring urgent Robles catheter 9. LINDSAY on CKD 2 - POA 10. Chronic anemia, suspected due to nutritional deficiency. 11. Hyponatremia. 12. Hypokalemia. 13. UTI - failed outpatient therapy. 14. History of cholecystectomy. 15. History of aortic valve replacement. PLAN: Cont Diuretics Echo reviewed Cont Amiodarone, Coreg and Digoxin Cont Warfarin AM labs Cont other meds as above
[2019-06-26] MEDS: Warfarin Sodium 3.75 MG HALF.TAB PO SCH (21:22)
[2019-06-27 04:26] LABS: Band 3 % (5-11); Hemoglobin 11.9 g/dL (14.0-18.0); Lymphocytes 16 % (21-51); MDiff Complete? YES; Mean Corpuscular HGB CONC 31.9 g/dL (32.0-36.0); Mean Corpuscular Hemoglobin 30.5 pg (27.0-31.0); Mean Corpuscular Volume 95.4 fL (78.0-98.0); Mean Platelet Volume 7.3 fL (7.4-10.4); Monocytes 15 % (0-10); Neutrophil 66 % (42-75); Platelet Count 218 thou/uL (130-400); Platelet Morphology Comment Appears Adequate; RBC Distribution Width 14.5 % (11.5-14.5); Red Blood Cell (RBC) Count 3.91 mill/uL (4.70-6.10); White Blood Cell (WBC) Count 6.4 thou/uL (4.8-10.8)
[2019-06-27 04:30] LABS: INR-International Normal Ratio 1.8; Prothrombin Time 21.1 sec (12.0-14.7)
[2019-06-27 04:48] LABS: ALT (SGPT) 80 U/L (8-55); AST (SGOT) 64 U/L (5-34); Albumin 3.4 g/dL (3.4-4.8); Alkaline Phosphatase 66 U/L (40-110); Anion Gap 14 mmol/L (10-20); BUN (Urea Nitrogen) 20 mg/dL (8.4-25.7); Bilirubin, Total 1.9 mg/dL (0.2-1.2); Calc. Creatinine Clearance 115 mL/min (70-130); Calcium 8.6 mg/dL (7.8-10.44); Carbon Dioxide 25 mmol/L (23-31); Chloride 102 mmol/L (98-107); Estimated GFR-MDRD 75; Globulin 2.2 g/dL (2.4-3.5); Glucose 77 mg/dL (83-110); Magnesium 1.7 mg/dL (1.6-2.6); Potassium 3.8 mmol/L (3.5-5.1); Protein, Total 5.6 g/dL (5.8-8.1); Sodium 137 mmol/L (136-145)
[2019-06-27] MEDS: Levothyroxine Sodium 25 MCG TAB PO SCH (05:35)
[2019-06-27] MEDS: Levothyroxine Sodium 112 MCG TAB PO SCH (05:35)
[2019-06-27] MEDS: Polyethylene Glycol 3350 17 GM Packet PO SCH ×2 (08:34→20:32)
[2019-06-27] MEDS: Famotidine 20 MG TAB PO SCH ×2 (08:34→20:31)
[2019-06-27] MEDS: Digoxin 0.125 MG TAB PO SCH (08:34)
[2019-06-27] MEDS: Lisinopril 2.5 MG TAB PO SCH (08:35)
[2019-06-27] MEDS: Potassium Chloride 20 MEQ TAB PO SCH ×2 (08:35→17:27)
[2019-06-27] MEDS: Amiodarone 200 MG TAB PO SCH (08:35)
[2019-06-27] MEDS: Furosemide 40 MG/4 ML VIAL SLOW IVP SCH ×2 (08:35→20:31)
[2019-06-27] MEDS ORDERED: Magnesium Sulfate 2 GM in Sodium Chloride 0.9% 100 ML IVPB SCH (09:15)
[2019-06-27] MEDS ORDERED: Warfarin Sodium 5 MG TAB PO SCH (09:30)
[2019-06-27] MEDS ORDERED: Spironolactone 25 MG TAB PO SCH (09:30)
[2019-06-27] MEDS ORDERED: Magnesium 2 GM/50 ML 2 GM in Premix Bag 1 BAG IVPB SCH (09:30)
[2019-06-27] MEDS ORDERED: Warfarin Sodium 2.5 MG TAB PO SCH (10:00)
[2019-06-27] MEDS: Empagliflozin 10 MG TAB PO SCH (11:24)
--- NOTE | 2019-06-27 11:45 | CON ---
DATE OF CONSULTATION: REASON FOR CONSULTATION: Advanced congestive heart failure, systolic. HISTORY OF PRESENT ILLNESS: Mr. John Rodriguez is a very pleasant 73-year-old gentleman with multiple severe medical problems as will be outlined below. The patient initially presented apparently with abnormal aortic valve and underwent mechanical aortic valve replacement in the early . He did not have heart disease at that time in terms of heart arteries, they did not require bypass surgery. The patient states he did well up until 2013. Apparently, at that point, it was found that he had congestive heart failure and a defibrillator was implanted. The patient states the defibrillator had gone off about 2-1/2 years ago, but he does not know the details of that. He also has a history of atrial fibrillation. The patient has been followed at [facility] in [facility]. The patient states he was seen in [facility] about 5 months ago. He said recently he has been having abdominal pain and abdominal distention. Initially, it was thought that this was related to his GI tract, but later thought it is likely related to congestive heart failure. The patient has now progressive abdominal distention and progressive swelling of his lower extremities, which has become refractory to oral medicines. He is short of breath at night and has paroxysmal nocturnal dyspnea and orthopnea. Overall, the patient is not doing well. Apparently, the patient did have atrial fibrillation in the past and was on amiodarone, although now defibrillator is programed to VVIR. He says to his knowledge he has never had a heart catheterization. He said he did have a "heart attack" 2-1/2 years ago, but the details of that are not available to me. The patient also has diabetes. The patient also has problem with urinary retention, required a Robles catheter to be placed by urologist due to a stricture. MEDICATIONS: At home, included: 1. Accupril 40 mg a day. 2. Coumadin. 3. Spironolactone. 4. Digoxin 0.125 mg. 5. Carvedilol 6.25 mg twice daily. 6. Levothyroxine. 7. Amiodarone. 8. Metformin. ALLERGIES: NONE KNOWN. SOCIAL HISTORY: No alcohol or tobacco. He has a family member in the room with him and the family member is very supportive. REVIEW OF SYSTEMS: CONSTITUTIONAL: Positive for weight gain due to fluid. VISION: No changes. HEARING: No changes. PULMONARY: No cough or wheezing. Positive for shortness of breath. CARDIAC: As outlined above. GASTROINTESTINAL: Positive for abdominal pain and abdominal swelling. EXTREMITIES: Positive for lower extremity swelling. MUSCULOSKELETAL: No unusual joint pain. NEUROLOGIC: No unusual weakness or numbness. FAMILY HISTORY: Noncontributory. PHYSICAL EXAMINATION: GENERAL: This is a chronically ill-appearing elderly gentleman. VITAL SIGNS: Blood pressure is low at 104/63, pulse 70 and it is regular. EYES: Sclerae nonicteric. MOUTH: Mucous membranes moist. NECK: Supple. No lymphadenopathy, LUNGS: Clear anteriorly and laterally. CARDIAC: Normal S1 and normal S2. I do not hear a murmur, rub, or gallop. ABDOMEN: Obese and nontender with also likely some ascites. EXTREMITIES: 3 to 4+ edema in the lower extremities. PERTINENT LABORATORY DATA: Potassium is 3.8, creatinine 0.98, AST 64, and ALT 80. EKG reveals a biventricular paced rhythm. I do not see P waves. Echocardiogram showed mechanical aortic valve, the left ventricular ejection fraction is estimated at 15% to 20%, mild mitral regurgitation, dilatation of inferior vena cava. The patient underwent a stress testing in 2018, revealed previous infarcts, but no ischemia. There is extensive fixed defects anterior, lateral, inferior, and septum and apex. Ejection fraction was 18% on that study. ASSESSMENT: 1. Congestive heart failure, systolic, acute on chronic, still poorly compensated. 2. Relatively hypotensive. 3. Diabetes. 4. Obesity. 5. Mechanical aortic valve replacement. 6. Ascites, likely cardiac in origin. 7. Atrial fibrillation. 8. Previous pacemaker defibrillator. 9. Urinary stricture. The patient is still poorly compensated. He has been in the hospital now for quite some time. Heart failure is not responded well to standard therapy. PLAN: 1. Stop STU inhibitor. 2. Change to Entresto. 3. We will add Jardiance to help with his congestive heart failure. 4. Try to reinstitute beta blockers when blood pressure allows. 5. Coumadin subtherapeutic. We will give extra Coumadin. 6. Consideration for trying to further interrogate the defibrillator, and it is unclear how long he has been in atrial fibrillation, but I suspect it has been for quite some time as it looks like he was reprogramed to VVIR. 7. Chest x-ray to be repeated. 8. Prognosis guarded in this gentleman and fdc. If the patient does not respond to these therapies, could consider further consultation with Dr. Jarvis about more advanced heart failure options including Milrinone. First, we will try to do the above as well as resume spironolactone, give IV Lasix and Jardiance, and if necessary, could add Zaroxolyn, but need to watch blood pressure closely. The patient's guarded and long-term status in this complicated patient. Job ID: [id number]
--- NOTE | 2019-06-27 11:48 | RAD ---
SINGLE VIEW CHEST: Date: 06/27/2019 COMPARISON: None. HISTORY: CHF. FINDINGS: Single view of the chest shows an enlarged cardiomediastinal silhouette. A pacemaker is seen with emili ds in the right and left ventricles. The patient is status post sternotomy. Opacity is seen in the le ft lung base, which may represent atelectasis or infiltrate. IMPRESSION: 1. Cardiomegaly. 2. Left basilar atelectasis versus infiltrate. POS: EAA
[2019-06-27 13:37] LABS: Smooth Muscle Total ABS 6 Units (0-19)
[2019-06-27 15:13] LABS: Alpha-1-Antitrypsin 245 mg/dL (101-187)
[2019-06-27] MEDS: Warfarin Sodium 3.75 MG HALF.TAB PO SCH (20:31)
[2019-06-28 04:44] LABS: #Eosinphils 0.2 thou/uL (0.0-0.7); #Lymphocytes 1.2 thou/uL (1.20-3.40); #Neutrophils 4.8 thou/uL (1.40-6.50); %Basophils 0.5 % (0.0-1.0); %Eosinophils 2.4 % (0.0-10.0); %Lymphocytes 17.2 % (21.0-51.0); %Monocytes 13.5 % (0.0-10.0); %Neutrophils 66.3 % (42.0-75.0); Mean Corpuscular HGB CONC 31.4 g/dL (32.0-36.0); Mean Corpuscular Hemoglobin 30.1 pg (27.0-31.0); Mean Corpuscular Volume 95.7 fL (78.0-98.0); Mean Platelet Volume 7.5 fL (7.4-10.4); Platelet Count 241 thou/uL (130-400); RBC Distribution Width 14.8 % (11.5-14.5); Red Blood Cell (RBC) Count 4.32 mill/uL (4.70-6.10); White Blood Cell (WBC) Count 7.2 thou/uL (4.8-10.8)
[2019-06-28 04:48] LABS: INR-International Normal Ratio 1.6; Prothrombin Time 19.3 sec (12.0-14.7)
[2019-06-28 05:06] LABS: ALT (SGPT) 77 U/L (8-55); AST (SGOT) 62 U/L (5-34); Albumin 3.9 g/dL (3.4-4.8); Alkaline Phosphatase 81 U/L (40-110); Anion Gap 19 mmol/L (10-20); BUN (Urea Nitrogen) 19 mg/dL (8.4-25.7); Bilirubin, Total 2.3 mg/dL (0.2-1.2); Calc. Creatinine Clearance 93 mL/min (70-130); Calcium 9.6 mg/dL (7.8-10.44); Carbon Dioxide 25 mmol/L (23-31); Chloride 99 mmol/L (98-107); Estimated GFR-MDRD 59; Globulin 2.9 g/dL (2.4-3.5); Glucose 81 mg/dL (83-110); Potassium 4.7 mmol/L (3.5-5.1); Protein, Total 6.8 g/dL (5.8-8.1); Sodium 138 mmol/L (136-145)
[2019-06-28] MEDS: Levothyroxine Sodium 25 MCG TAB PO SCH (05:21)
[2019-06-28] MEDS: Levothyroxine Sodium 112 MCG TAB PO SCH (05:21)
[2019-06-28] MEDS ORDERED: Warfarin Sodium 5 MG TAB PO SCH (08:00)
[2019-06-28] MEDS ORDERED: Spironolactone 25 MG TAB PO SCH (08:00)
--- NOTE | 2019-06-28 08:08 | PDOC.HOSPP ---
- Subjective Encounter Date: 06/27/19 Encounter Time: 10:00 Subjective: Patient seen and examined for CHF. SOB slowly improving. No CP. No new complaints. No overnight events - Objective Vital Signs & Weight: Vital Signs (12 hours) Temp Pulse Resp BP Pulse Ox 06/28/19 04:22 94 L 06/28/19 03:26 98.5 F 69 18 115/74 94 L Weight Weight 258 lb 9.6 oz I&O: 06/27/19 06/28/19 06/29/19 06:59 06:59 06:59 Intake Total 1500 1180 Output Total 2250 3850 Balance -572 -4122 Result Diagrams: 06/28/19 04:25 06/28/19 04:25 Additional Labs: Accuchecks 06/28/19 06/27/19 06/27/19 06:13 20:14 16:50 POC Glucose 93 131 H 124 H 06/27/19 10:37 POC Glucose 191 H EKG Reviewed by me: Yes (Tele paced) Hospitalist ROS - Review of Systems Respiratory: denies: cough, dry, shortness of breath, hemoptysis, SOB with excertion, pleuritic pain, sputum, wheezing, other Gastrointestinal: denies: nausea, vomiting, abdominal pain, diarrhea, constipation, melena, hematochezia, other - Medication Medications: Active Medications Generic Name Dose Route Start Last Admin Trade Name Freq PRN Reason Stop Dose Admin Acetaminophen 1,000 mg 06/21/19 09:56 06/22/19 06:26 Tylenol PO 1,000 mg Q6H PRN Administration Mild Pain (1-3) Amiodarone HCl 200 mg 06/22/19 09:00 06/27/19 08:35 Cordarone PO 200 mg DAILY NOHEMY Administration Bisacodyl 10 mg 06/22/19 10:30 06/22/19 10:33 Dulcolax [place] 10 mg DAILYPRN PRN Administration Constipation Digoxin 0.125 mg 06/22/19 09:00 06/27/19 08:34 Lanoxin PO 0.125 mg QAM NOHEMY Administration Famotidine 20 mg 06/21/19 21:00 06/27/19 20:31 Pepcid PO 20 mg BID NOHEMY Administration Fentanyl 25 mcg 06/21/19 10:00 06/22/19 06:26 Sublimaze SLOW IVP 25 mcg Q4H PRN Administration Moderate to Severe Pain (6-10) Furosemide 40 mg 06/24/19 21:00 06/27/19 20:31 Lasix SLOW IVP 40 mg BID NOHEMY Administration Levothyroxine Sodium 112 mcg 06/22/19 06:00 06/28/19 05:21 Synthroid PO 112 mcg 0600 NOHEMY Administration Levothyroxine Sodium 25 mcg 06/22/19 06:00 06/28/19 05:21 Synthroid PO 25 mcg 0600 NOHEMY Administration Miscellaneous Medication 10 mg 06/27/19 09:00 06/27/19 11:24 Jardiance PO 10 mg DAILY NOHEMY Administration Polyethylene Glycol 17 gm 06/23/19 09:00 06/27/19 20:32 Miralax PO Not Given BID NOHEMY Potassium Chloride 20 meq 06/25/19 17:00 06/27/19 17:27 K-Dur PO 20 meq BID-WM NOHEMY Administration Sodium Chloride 10 ml 06/21/19 21:00 06/27/19 20:32 Flush - Normal Saline IVF 10 ml Q12HR NOHEMY Administration - Exam General Appearance: NAD Heart: RRR, no gallops Respiratory: no wheezes, no ronchi Gastrointestinal: soft, non-tender Extremities: 1+ LE edema Hosp A/P - Plan DVT proph w/SCDs 1. Lwyub-gm-vzwbzfx systolic CHF. 2. Abdominal discomfort secondary to ascites, improving. 3. Abnormal LFTs secondary to congestive hepatopathy from congestive heart failure. 4. Chronic atrial fibrillation, on anticoagulation. 5. Obstructive sleep apnea, on CPAP. 6. Diabetes mellitus type 2. 7. Hypertension. 8. Urinary retention, requiring urgent Robles catheter 9. LINDSAY on CKD 2 - POA 10. Chronic anemia, suspected due to nutritional deficiency. 11. Hyponatremia. 12. Hypokalemia/Hypomagnesemia 13. UTI - failed outpatient therapy. 14. History of cholecystectomy. 15. History of aortic valve replacement. PLAN: Replace Magnesium Await Cardio input Cont IV Lasix with Coreg Cont Warfarin Monitor PT/INR Cont Amiodarone, Digoxin and other meds as above AM labs
[2019-06-28] MEDS ORDERED: Warfarin Sodium 2 MG TAB PO SCH ×3 (08:30→17:00)
--- NOTE | 2019-06-28 08:45 | PRG ---
DATE OF SERVICE: 06/28/2019 SUBJECTIVE: Mr. Rodriguez is sitting up in the chair, looks much better. OBJECTIVE: VITAL SIGNS: His blood pressure 115/74, pulse 70. LUNGS: Clear. CARDIAC: Normal S1. Normal S2. ABDOMEN: Soft, nontender. EXTREMITIES: There is marked reduction in the edema. PERTINENT LABORATORY DATA: His creatinine is up to 1.2, potassium is 4.7. The AST is 62, the ALT is 77. This is gradually improving. ASSESSMENT: 1. Congestive heart failure systolic, fptzw-lz-[id number], improving. 2. Renal function, slight increased creatinine with diuresis. 3. Potassium, controlled. 4. INR is low. I suspect with his hepatic congestion is improving, his INR is 1.6 despite extra Coumadin. PLAN: 1. Give extra Coumadin. 2. Stop spironolactone. 3. Continue Jardiance. 4. Start Entresto tonight. 5. Reduce furosemide dose. 6. Probably go home tomorrow. 7. Consideration for outpatient cardioversion if it is thought to be an option. I do not know how long the patient has been in atrial fibrillation or whether cardioversion would be considered. Apparently from looking at the pacemaker defibrillator data, he had been reprogramed back to VVIR indicating I suspect he is chronically in atrial fibrillation. I do not know how long he has been in that, but if it has not been a prolonged time, consideration for an attempted cardioversion could be made. Job ID: [id number]
[2019-06-28] MEDS: Potassium Chloride 20 MEQ TAB PO SCH ×2 (08:54→18:17)
[2019-06-28] MEDS: Digoxin 0.125 MG TAB PO SCH (08:54)
[2019-06-28] MEDS: Amiodarone 200 MG TAB PO SCH (08:54)
[2019-06-28] MEDS: Famotidine 20 MG TAB PO SCH ×2 (08:54→20:02)
[2019-06-28] MEDS: Empagliflozin 10 MG TAB PO SCH (08:55)
[2019-06-28] MEDS: Polyethylene Glycol 3350 17 GM Packet PO SCH ×2 (08:56→20:03)
[2019-06-28] MEDS: Furosemide 40 MG/4 ML VIAL SLOW IVP SCH ×2 (08:56→20:01)
[2019-06-28] MEDS ORDERED: Sacubitril 24.5 MG/Valsartan 25.5 MG TABLET PO SCH (18:00)
[2019-06-28] MEDS ORDERED: Carvedilol 3.125 MG TAB PO SCH (18:00)
[2019-06-28] MEDS ORDERED: Milrinone Lactate/D5W 20 MG in Premix Bag 1 BAG IV SCH (18:00)
[2019-06-28 19:13] LABS: EliA Vaculitis New Method **** NEW METHOD ****; Mitochondrial Ab 0.6 U/mL (<4 Negative)
[2019-06-28 19:47] VITALS: BP 107/67; TEMP 99.2
--- NOTE | 2019-06-28 20:27 | CON ---
DATE OF CONSULTATION: 06/28/2019 SERVICE: Advanced Heart Failure Cardiology Consulting Service. REASON FOR CONSULT: Management of complicated acute on chronic heart failure patient. HISTORY OF PRESENT ILLNESS: Mr. John Rodriguez, 73-year-old gentleman post AVR and heart failure with reduced ejection fraction, EF about 30%, presented to [facility] due to abdominal pain. Mr. Rodriguez's cardiac problems started prior to 1990. He required aortic valve replacement with mechanical valve in 1991. Apparently, he did quite well for a while. However, he went into heart failure some time ago. Then, he received cardiac resynchronization therapy device which is CHIEF LIBRARIAN BRANCH-D sometime in 2014 or 2015. He was shocked in 2018, but medical treatment improved him. So, he was able to go shopping in [facility] and walk as he needed without difficulty. However, he began to decompensate in what appears to be May 2019. He said he has increased edemas in the leg and abdomen and he felt really bad, and he also felt short of breath. He saw his primary care doctor in [place], [place], and he received IM Lasix. He also took Lover a week of p.o. Lasix. He said that the edema went away for a while. Unfortunately, the edema came back. It gathered around the lower abdomen and then his legs and his thighs and feet. Then, he developed lower abdominal pain. It is more so on the left side. He was found to have elevated liver enzymes. Then, he was asked to come to [facility] [place] for GI pains. He was admitted to general medicine floor with GI consult. He was also supratherapeutic with a high INR. Eventually, echocardiogram was done and Advanced Heart Failure Cardiology was consulted today. It is not a GI problem. It is most likely due to right ventricular dysfunction causing liver congestion that is what caused the elevation of liver enzymes. In the process, he did receive IV diuretics. Decongesting helped him. His total bilirubin did drop, however, his total bilirubin has increased again, along with return of elevation of liver enzymes. PAST MEDICAL HISTORY: 1. History of aortic valve replacement with mechanical value in 1991. 2. Heart failure with reduced ejection fraction, last reported verbally with EF of 30%. He is normally followed by Dr. Justin Marcano at [facility]. 3. History of hypertension. 4. Type 2 diabetes. 5. Hypothyroidism. 6. History of longstanding atrial fibrillation. SOCIAL HISTORY: 1. He never smoked. 2. He denies using alcohol. 3. He did not use illicit drugs. 4. He lives by himself. He is . However, his daughter lives nearby. 5. 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 FAMILY HISTORY: 1. His father at age 74 from a car accident that bursted an aneurysm in the brain. 2. His mother at age 84 of unknown cause. 3. His has 2 brothers who are obese. REVIEW OF SYSTEMS: GENERAL: There is no fever, chills, or productive cough. HEENT: There is no changes in vision, hearing, or swallowing. PULMONARY: Please see HPI. He is short of breath. CARDIAC: Please see HPI. He has exertion intolerance. GI: Please see HPI. He can still eat and have bowel movements. : He does not have problem urinating. MUSCULOSKELETAL: He does not complain of any back or joint pains. INTEGUMENT: He does not complain of skin breakdown. NEUROLOGIC: He does not report any new focal deficits or weaknesses. PHYSICAL EXAMINATION: His telemetry was reviewed. It showed a paced rhythm with frequent PVCs. However, there are no ventricular tachycardias. VITAL SIGNS: His latest vitals are heart rate 72, blood pressure 118/82. GENERAL: He is alert and conversational. He is reclining and able to talk. He is little bit short of breath, but not terribly so. HEENT: Show EOMI. His oropharynx is benign with moist mucosa. NECK: Shows his JVP is very elevated to the mid ear level with positive hepatojugular reflux. When you push on the abdomen, his JVP rise above his ear. PULMONARY: Good air movement in bilateral upper two-third gutierrez. However, there is bibasilar crackles more prominent and high on the right base. CARDIAC: Combination of some regular rhythm and irregular rhythm, there is S1, S2, there is also a railcar mechanic valve click. There is 2/6 holosystolic murmur at the apex with radiation to the left axilla. There is also 2/6 holosystolic murmur at the left sternal border thus he has both mitral regurgitation, tricuspid regurgitation, and a sound of a mechanical aortic valve. ABDOMEN: Distended, soft, nontender. BACK: He has some presacral edema. EXTREMITIES: Lower extremity has pitting edema that is at least a centimeter from foot to two-thirds way up toward knee. He has about 0.5 cm pitting edema of his thigh. LABORATORY VALUES: Sodium 138, potassium 4.7, chloride 99, bicarb 25, BUN 19, creatinine 1.21. His total bilirubin is mildly elevated at 2.3, AST is mildly elevated at 62, and ALT is mildly elevated at 77. The total bilirubin has re-elevation since 2 days ago. Echocardiogram from June 25, 2019, was briefly reviewed. It showed; 1. LVIDD is 7.8 cm. 2. Ejection fraction of 15%. 3. Presence of mitral regurgitation. 4. Aortic valve is not well seen, but I believe it is patent. 5. Left atrium is severely dilated. 6. There is severe diastolic dysfunction with E prime of only 3 cm/second. 7. There is moderately dilated right ventricular size. 8. There is mild to moderately depressed right ventricular function. 9. Pressure gradient across the tricuspid valve as measured by tricuspid regurgitation is 43 mmHg, accounting for the dilated IVC, he probably has peak PA pressure of 58 mmHg. ASSESSMENT: 73-year-old male has acute on chronic heart failure with reduced ejection fraction. It is probably a nonischemic cardiomyopathy caused by his underlying difficulties and past aortic valve replacement. Underlying coronary artery disease cannot be excluded since we do not have his cath film from the past. But currently he is not showing any ischemic signs. The moderately dilated right ventricle and depressed right ventricular function likely represents a right ventricular failure. The right ventricular failure probably congested his liver to give elevated enzymes and also congested his gastrointestinal tract to give the his gastrointestinal pains. He is a patient of [facility] where he is followed by Dr. Justin Marcano. He was sent to [facility] [place] by accident. The patient currently now requests to be transferred to [facility] for his heart problem because that is where his heart problem has been taken care of. A recent insult has caused ejection fraction to decrease and he has probable new onset right ventricular dysfunction, so he will need significant intervention. He will need evaluation for left ventricular assist device before the right ventricular dysfunction becomes permanent. All of these cannot be done at [facility] in [place]. Per patient's wish and for continuity of care, the patient should be transferred to [facility]. His CHIEF LIBRARIAN BRANCH-D device was also interrogated. It is a [employer] device. It is a Viva Quad XT CHIEF LIBRARIAN BRANCH-D KFAF5OL; with serial # [id number]. It does not have an atrial lead. It has 2 ventricular leads. It is in a VVIR mode at 70 beats per minute as the lower rate limit with the upper sensor rate of 110 beats per minute. He is currently BiV paced at 92.8%. There is no atrial fibrillation or atrial tachycardia episode. There are no ventricular tachycardia or ventricular fibrillation episode. His thoracic impedance showed overall decrease signifying edema with the worse point in May and another decompensation taking place in June. RECOMMENDATIONS: 1. Transfer to [facility] in [place], [place]. He has been accepted by Dr. Cindy Alcantar, she is the on-call reproduction production manager. 2. Please start milrinone 0.125 mcg/kg/minute; if systolic blood pressure maintains above 95 mmHg after 1 hour, then increase to 0.25 mcg/kg/minute. This is to augment the right ventricular function, decrease pulmonary pressures to decongest his liver and to keep the RV from deteriorating further. 3. Please restart low-dose carvedilol at 3.125 mg q. 12 hours. He was on carvedilol before, it is not sure why he was taken off. We will start at slow and then go up to [facility] to titrate it back up. 4. His INR is too low. It has been below 1.7 for 3 days now. Thus, please start enoxaparin at 1 mg/kg SC q.12 hours, first dose now. He will likely need 110 mg SC q.12 hours. 5. Since he really has not received his Entresto, please hold Entresto for now because combination of Entresto and milrinone can drop his blood pressure too much. 6. Continue IV diuresis as you are doing. 7. Please supplement his potassium to make sure it is above 4 and magnesium to make sure it is above 2. It has been a pleasure taking care of Mr. John Rodriguez. If you have any questions, please give me a call. Job ID: [id number] [facility]
[2019-06-28] MEDS ORDERED: Enoxaparin Sodium 120 MG/0.8 ML SYRINGE SC SCH (21:00)
[2019-06-29] MEDS ORDERED: Carvedilol 3.125 MG TAB PO SCH (09:00)
--- NOTE | 2019-06-29 09:20 | DIS ---
DATE OF ADMISSION: 06/21/2019 DATE OF DISCHARGE: 06/28/2019 DISCHARGE DISPOSITION: [facility]. DISCHARGE MEDICATIONS: 1. Amiodarone 200 mg daily. 2. Digoxin 125 mcg daily. 3. Levothyroxine 137 mcg daily. 4. Metformin 1000 mg b.i.d. 5. Carvedilol 3.125 mg b.i.d. 6. Lovenox 1 mg/kg b.i.d. until INR is more than 2. 7. Lasix 20 mg b.i.d. 8. Milrinone drip. 9. Warfarin 4 mg q.p.m. The patient was seen and examined on the day of discharge. Shortness of breath is improving. Vital signs on the day of discharge showed temperature 97.1, pulse rate of 72, respirations of 15, blood pressure of 118/82 with O2 saturation 97% on room air. INPATIENT CONSULTANTS: 1. Cardiology, Dr. Minaya. 2. Advanced Heart Failure specialist, Dr. Jarvis. 3. Gastroenterology, Dr. Gillespie. 4. Urology, Dr. Gacria. BRIEF HOSPITAL COURSE: The patient is a 73-year-old male with cardiomyopathy, diabetes mellitus type 2, mechanical aortic valve replacement and coronary artery disease, presented to the hospital on 06/21/2019 with abdominal discomfort. He was found to have total bilirubin of 3.7. The CT scan of the abdomen showed small amount of ascites. CT angiogram of the chest was negative for pulmonary embolism. He was admitted on telemetry unit and was evaluated by Gastroenterology. According to Gastroenterology, the patient's abdominal pain and abnormal LFTs were probably due to congestive hepatopathy. Acute viral panel was negative. Smooth muscle antibody and antimitochondrial antibody were negative. The patient was then started on diuretics. He was also transferred to telemetry unit. He was evaluated by Cardiology and Advanced Heart Failure specialist. He was started on Milrinone drip. He had nonsustained ventricular tachycardia on the tele monitor. He also developed urinary retention requiring Robles catheter placement. He had supratherapeutic INR with INR of 4.8 for which Coumadin was initially held. His Coumadin on the day of discharge was 1.6. He has been started on Lovenox until his INR becomes therapeutic. Echocardiogram showed ejection fraction of 15% to 20% with [id number] tricuspid regurgitation, mild mitral regurgitation. FINAL DIAGNOSES: 1. Acute on chronic systolic heart failure exacerbation. 2. Abdominal discomfort secondary to ascites as well as congestive hepatopathy. 3. Abnormal LFTs secondary to congestive hepatopathy. 4. Chronic atrial fibrillation, on anticoagulation. 5. Supratherapeutic INR on admission. 6. Obstructive sleep apnea, on CPAP. 7. Diabetes mellitus type 2. 8. Hypertension. 9. Acute kidney injury on chronic kidney disease stage 2. 10. Urinary retention requiring Robles catheter. 11. Chronic anemia, suspected due to nutritional deficiency. 12. History of mechanical aortic valve replacement. 13. Hypothyroidism. 14. Hyponatremia. 15. Hypokalemia. 16. Hypomagnesemia. 17. History of urinary tract infection diagnosed prior to admission. His urine culture remained negative. He has completed antibiotics. TIME SPENT: Time coordinating the discharge of this patient was 36 minutes. Job ID: [id number]
--- NOTE | 2019-06-30 06:46 | PQF ---
SOILA LERNER MALIK MD [id number] CLINICAL DOCUMENTATION CLARIFICATION FORM: POST DISCHARGE Addendum to original discharge summary date: ____ Late entry note date: __ DATE: 06/29/2019 ATTN: Kai Tobar Please exercise your independent, professional judgment in responding to the clarification form. Clinical indicators are provided on the bottom of this form for your review In your clinical opinion based on clinical findings below, can you please identify the etioloyg of Hypotension if due to: Please check appropriate box(s): [ ] Acute Kidney Injury [ ] Dehydration [ ] UTI [ ] Adverse effect of antihypertensive drug [ ] Other diagnosis [ x ] Unable to determine For continuity of documentation, please document condition throughout progress notes and discharge summary. Thank You. CLINICAL INDICATORS - SIGNS / SYMPTOMS / LABS Laboratory 06/19 BUN 33, Creatinine 1.58, GFR 43 Urine culture 06/19 Negative 48 hrs Vital signs 06/19 BP 88/51, Puse 71, Resp 1/, temp 98.5 H&P p1 06/19 pt noted with elevated total bilirubin and hypotension H&P p4 06/20 Hypotension suspect element of dehydration in conjunction with antihypertensive regimen H&P p4 06/20 Abdominal pain-suspect element of UTI RISK FACTORS H&P p1 06/20 73 year-old male H&P p1 06/20 HTN H&P p1 06/20 Old [place] H&P p1 06/20 Afib H&P p1 06/20 DM H&P p1 06/20 AICD H&P p1 06/20 BPH H&P p4 06/20 UTI H&P p4 06/20 Acute Kidney injury with CKD 3 H&P p1 06/20 Ischemic Cardiomyopathy TREATMENTS: APR 13 IV Ceftriaxone 2gm APR 13 IV Bolus NS 1L APR 13 IV Fentanyl 50mcg Urinalysis 06/20 Urine culture 06/19 H&P p4 06/20 Hold Antihypertensive drug H&P p4 06/20 Avoid nephrotoxic agents and limit contrast exposure H&P p4 06/20 Repeat creatinine DS p1 06/27 Cardiology consult DS p1 06/27 Urology consult (This form is maintained as a part of the permanent medical record) 2014 [employer] All Rights Reserved [email or web address]
== END 2019-06-28 21:35 | disposition short-term general hospital (02) | DRG 314 ==
LOC: ERS 19:11 → T4-B 22:12 → OBSVTOIN 06-21 09:56 → 2NO 06-25 09:37
PROVIDERS: ADMIT Internal Medicine; ATTEND Internal Medicine
PROC: 3E0234Z Introduction of Serum, Toxoid and Vaccine into Muscle, Percutaneous Approach (ICD-10-PCS; 2019-06-21)
PROC: 0T9B80Z Drainage of Bladder with Drainage Device, Via Natural or Artificial Opening Endoscopic (ICD-10-PCS; principal; 2019-06-24)
PROC: 4B02XTZ Measurement of Cardiac Defibrillator, External Approach (ICD-10-PCS; 2019-06-28)
DX: I95.9 Hypotension, unspecified (principal); I50.43 Acute on chronic combined systolic (congestive) and diastolic (congestive) heart failure; I13.0 Hypertensive heart and chronic kidney disease with heart failure and stage 1 through stage 4 chronic kidney disease, or unspecified chronic kidney disease; R18.8 Other ascites; I48.20 Chronic atrial fibrillation, unspecified; E87.1 Hypo-osmolality and hyponatremia; N39.0 Urinary tract infection, site not specified; N17.9 Acute kidney failure, unspecified; I47.2 Ventricular tachycardia; E11.22 Type 2 diabetes mellitus with diabetic chronic kidney disease; K76.1 Chronic passive congestion of liver; R33.9 Retention of urine, unspecified; R79.1 Abnormal coagulation profile; D53.9 Nutritional anemia, unspecified; G47.33 Obstructive sleep apnea (adult) (pediatric); E83.42 Hypomagnesemia; E03.9 Hypothyroidism, unspecified; E87.6 Hypokalemia; N40.0 Benign prostatic hyperplasia without lower urinary tract symptoms; I25.5 Ischemic cardiomyopathy; N18.3 Chronic kidney disease, stage 3 (moderate); R31.9 Hematuria, unspecified; N35.919 Unspecified urethral stricture, male, unspecified site; E86.0 Dehydration; K59.09 Other constipation; E66.9 Obesity, unspecified; I49.3 Ventricular premature depolarization; Z79.01 Long term (current) use of anticoagulants; Z95.2 Presence of prosthetic heart valve; Z95.810 Presence of automatic (implantable) cardiac defibrillator; Z79.84 Long term (current) use of oral hypoglycemic drugs; I25.2 Old myocardial infarction; Z90.49 Acquired absence of other specified parts of digestive tract; Z79.899 Other long term (current) drug therapy; Z79.890 Hormone replacement therapy; Z68.32 Body mass index [BMI] 32.0-32.9, adult; Z23 Encounter for immunization
CPT/HCPCS: 36415; 36416; 71045; 80048; 80053; 80074; 80076; 80162; 81003; 81015; 82103; 82104; 82274; 83516; 83540; 83550; 83605; 83690; 83735; 83880; 84443; 85007; 85025; 85027; 85610; 85730; 87086; 90471; 90670; 93005; 93306; 93798; 93975; 94660; 96361; 96374; G0009; J0696; J1650; J1940; J2260; J3010; J3430; J3475; J3490; J7050; P9047